=== PATIENT | female | born 1955 | race Caucasian/White ===

== ENCOUNTER 2021-06-05 09:59 | Emergency (ER) | payer MEDICARE, OTHER ==
[2021-06-05] MEDS ORDERED: SODIUM CHLORIDE 0.9% 1,000 ML IV STA (13:54)
--- NOTE | 2021-06-05 14:06 | ED ---
General Adult HPI - General Chief complaint: Abdominal Pain Stated complaint: Female Time Seen by Provider: 06/05/21 12:30 Source: patient, RN notes reviewed Mode of arrival: ambulatory Limitations: no limitations - History of Present Illness Initial comments: 66-year-old female presents to the emergency department independently with complaints of blood in her urine. Patient states she has had several episodes of urinary frequency, painful urination and hematuria this morning. Patient denies pain aside from urinating. Patient does report recent diarrheal illness that resolved last week; states she has been drinking Pedialyte, and also made s ome dietary changes as a result. Denies fever, chills, nausea, vomiting, abdominal pain, and back pain currently. No known sick contacts. - Related Data Home Medications Medication Instructions Recorded Confirmed Ascorbic Acid [Vitamin C] 500 mg PO DAILY 06/05/21 06/05/21 Aspirin EC [Ecotrin] 325 mg PO DAILY 06/05/21 06/05/21 Calcium Carbonate/Vitamin D3 1 tab PO DAILY 06/05/21 06/05/21 [Calcium 600 mg-Vit D3 10 mcg (400 Unit)] Metoprolol Tartrate [Lopressor] 25 mg PO BID 06/05/21 06/05/21 Multivitamins, Thera [Multivitamin 1 tab PO DAILY 06/05/21 06/05/21 (formulary)] Niacin 500 mg PO DAILY 06/05/21 06/05/21 Simvastatin [Zocor] 20 mg PO HS 06/05/21 06/05/21 lisinopriL [Zestril] 5 mg PO DAILY 06/05/21 06/05/21 Previous Rx's Medication Instructions Recorded Phenazopyridine [Pyridium] 200 mg PO TID #6 tablet 06/05/21 Sulfamethox-Tmp 800-160Mg [Bactrim 1 each PO Q12HR #20 tab 06/05/21 Ds] Allergies Allergy/AdvReac Type Severity Reaction Status Date / Time No Known Allergies Allergy Verified 06/05/21 13:04 Review of Systems ROS Statement: Those systems with pertinent positive or pertinent negative responses have been documented in the HPI. ROS Other: All systems not noted in ROS Statement are negative. Past Medical History Past Medical History: Coronary Artery Disease (CAD), Chest Pain / Angina, Hyperlipidemia, Hypertension Additional Past Medical History / Comment(s): Kidney History of Any Multi-Drug Resistant Organisms: None Reported Additional Past Surgical History / Comment(s): Cardiac Stent, Kidney surg Past Psychological History: No Psychological Hx Reported Smoking Status: Never smoker Past Alcohol Use History: None Reported Past Drug Use History: None Reported General Exam Limitations: no limitations General appearance: alert, in no apparent distress, other (Well-developed, well- nourished female in no acute distress.) ENT exam: Present: normal exam, normal oropharynx, mucous membranes moist Respiratory exam: Present: normal lung sounds bilaterally. Absent: respiratory distress, wheezes, rales, rhonchi, stridor Cardiovascular Exam: Present: regular rate, normal rhythm, normal heart sounds. Absent: systolic murmur, diastolic murmur, rubs, gallop, clicks GI/Abdominal exam: Present: soft, normal bowel sounds. Absent: distended, tenderness, guarding, rebound, rigid Neurological exam: Present: alert, oriented X3, CN II-XII intact Psychiatric exam: Present: normal affect, normal mood Skin exam: Present: warm, dry, intact, normal color. Absent: rash Course Vital Signs 06/05/21 10:04 Temperature 97.9 F Pulse Rate 91 Respiratory 20 Rate Blood Pressure 157/96 O2 Sat by Pulse 99 Oximetry - Reevaluation(s) Reevaluation #1: 06/05/21 15:25 Patient continuous resting comfortably; denies pain. Medical Decision Making - Medical Decision Making This is a 66-year-old female who was evaluated for hematuria and painful urination. Physical exam findings are negative this patient appears well- nourished. Patient expresses concern about blood in urine. Given 1 L of IV fluid. Blood and urine specimens were obtained. WBC 15.4, AST 136, ALT 305, alk phos 732; Urine RBC 1, WBC 6, bacteria rare. This patient's case and lab results were discussed with my attending. Patient will be encouraged to follow- up with her family doctor to discuss results further. Antibiotic therapy will be initiated for treatment of UTI. Pyridium will be given for urinary discomfort. Additional lab work was ordered included an acute hepatitis panel and a urine culture; patient will be notified if these results require any further attention as per protocol. Return parameters were discussed in detail. All of these things were discussed with patient at length; she verbalizes understanding and agrees with this plan. - Lab Data Result diagrams: 06/05/21 14:01 06/05/21 14:01 Lab Results 06/05/21 06/05/21 06/05/21 Range/Units 14: 14: 14:01 WBC 15.4 H (3.8-10.6) k/uL RBC 4.20 (3.80-5.40) m/uL Hgb 12.7 (11.4-16.0) gm/dL Hct 41.3 (34.0-46.0) % MCV 98.3 (80.0-100.0) fL MCH 30.3 (25.0-35.0) pg MCHC 30.8 L (31.0-37.0) g/dL RDW 12.3 (11.5-15.5) % Plt Count 650 H (150-450) k/uL MPV 7.4 Neutrophils % 81 % Lymphocytes % 11 % Monocytes % 4 % Eosinophils % 3 % Basophils % 0 % Neutrophils # 12.4 H (1.3-7.7) k/uL Lymphocytes # 1.7 (1.0-4.8) k/uL Monocytes # 0.6 (0-1.0) k/uL Eosinophils # 0.4 (0-0.7) k/uL Basophils # 0.1 (0-0.2) k/uL Sodium 138 (137-145) mmol/L Potassium 5.0 (3.5-5.1) mmol/L Chloride 104 (98-107) mmol/L Carbon Dioxide 22 (22-30) mmol/L Anion Gap 12 mmol/L BUN 14 (7-17) mg/dL Creatinine 0.85 (0.52-1.04) mg/dL Est GFR (CKD-EPI)AfAm 82 (>60 ml/min/1.73 sqM) Est GFR (CKD-EPI)NonAf 71 (>60 ml/min/1.73 sqM) Glucose 95 (74-99) mg/dL Calcium 9.9 (8.4-10.2) mg/dL Total Bilirubin 0.9 (0.2-1.3) mg/dL AST 136 H (14-36) U/L ALT 305 H (4-34) U/L Alkaline Phosphatase 732 H (38-126) U/L Total Protein 7.6 (6.3-8.2) g/dL Albumin 4.0 (3.5-5.0) g/dL Lipase 202 (23-300) U/L Urine Color Light Yellow Urine Appearance Clear (Clear) Urine pH 7.5 (5.0-8.0) Ur Specific [place] 1.003 (1.001-1.035) Urine Protein Negative (Negative) Urine Glucose (UA) Negative (Negative) Urine Ketones Negative (Negative) Urine Blood Large H (Negative) Urine Nitrite Negative (Negative) Urine Bilirubin Negative (Negative) Urine Urobilinogen <2.0 (<2.0) mg/dL Ur Leukocyte Esterase Large H (Negative) Urine RBC 1 (0-5) /hpf Urine WBC 6 H (0-5) /hpf Ur Squamous Epith Cells <1 (0-4) /hpf Urine Bacteria Rare H (None) /hpf Disposition Clinical Impression: Hematuria, Urinary tract infection Disposition: HOME SELF-CARE Condition: Stable Instructions (If sedation given, give patient instructions): Urinary Tract Infection in Women (ED), Hematuria (ED) Additional Instructions: Continue with ongoing hydration and dietary changes. Follow up with your primary care provider in the next 1-2 days. Call first thing tomorrow morning to discuss results from this visit including elevated liver enzymes (AST 136, ALT 305, alk phos 732). Initiate antibiotic therapy. Return to the emergency department with any new, worsening, or concerning symptoms. Prescriptions: Sulfamethox-Tmp 800-160Mg [Bactrim Ds] 1 each PO Q12HR #20 tab Phenazopyridine [Pyridium] 200 mg PO TID #6 tablet Is patient prescribed a controlled substance at d/c from ED?: No Referrals: Elgin Garber MD [Primary Care Provider] - 1-2 days Time of Disposition: 16:07
[2021-06-05 14:15] LABS: HCT 41.3 % (34.0-46.0); HGB 12.7 gm/dL (11.4-16.0); MCV 98.3 fL (80.0-100.0); WBC 15.4 k/uL (3.8-10.6)
[2021-06-05 14:16] LABS: Basophils # (A) 0.1 k/uL (0-0.2); Basophils % (A) 0 %; Eosinophils # (A) 0.4 k/uL (0-0.7); Eosinophils % (A) 3 %; Lymphocytes # (A) 1.7 k/uL (1.0-4.8); Lymphocytes % (A) 11 %; MCH 30.3 pg (25.0-35.0); MCHC 30.8 g/dL (31.0-37.0); Mean Platelet Volume 7.4; Monocytes # (A) 0.6 k/uL (0-1.0); Monocytes % (A) 4 %; Neutrophils # (A) 12.4 k/uL (1.3-7.7); Neutrophils % (A) 81 %; Platelet Count 650 k/uL (150-450); RDW 12.3 % (11.5-15.5)
[2021-06-05 14:31] LABS: Calcium 9.9 mg/dL (8.4-10.2); Total Bilirubin 0.9 mg/dL (0.2-1.3); Total Protein 7.6 g/dL (6.3-8.2)
[2021-06-05 14:41] LABS: Appearance,Urine Clear (Clear); Bacteria,Urine Rare /hpf; Bilirubin,Urine Negative (Negative); Blood,Urine Large (Negative); Color,Urine Light Yellow; Glucose,Urine (UA) Negative (Negative); Ketones,Urine Negative (Negative); Leukocyte Esterase,Urine Large (Negative); Nitrite,Urine Negative (Negative); PH, Urine 7.5 (5.0-8.0); Protein,Urine Negative (Negative); RBC,Urine 1 /hpf (0-5); Specific Gravity,Urine 1.003 (1.001-1.035); Squamous Epithelial Cell,Urine <1 /hpf (0-4); Urobilinogen,Urine <2.0 mg/dL (<2.0); WBC,Urine 6 /hpf (0-5)
[2021-06-05 17:35] VITALS: BP 138/77; PULSE 82; RESP 20; TEMP 98.4
[2021-06-07 01:49] LABS: Hepatitis A Antibody IgM Nonreactive (Nonreactive); Hepatitis B Core IgM Nonreactive (Nonreactive); Hepatitis C IgG Antibody Nonreactive (Nonreactive)
== END 2021-06-05 17:34 | disposition home or self-care (01) ==
LOC: EC 09:59
DX: N39.0 Urinary tract infection, site not specified (principal); I25.10 Atherosclerotic heart disease of native coronary artery without angina pectoris; E78.5 Hyperlipidemia, unspecified; I10 Essential (primary) hypertension; Z79.82 Long term (current) use of aspirin; Z20.822 Contact with and (suspected) exposure to COVID-19
CPT/HCPCS: 36415; 80053; 80074; 81001; 83690; 85025; 87086; 87635; 96360; 99283

== ENCOUNTER 2023-03-19 22:39 | Emergency (ER) | payer MEDICARE ==
[2023-03-19] MEDS ORDERED: SODIUM CHLORIDE 0.9% 1,000 ML IV STA (23:38)
[2023-03-19] MEDS ORDERED: METOCLOPRAMIDE 5 MG/ML 2 ML VIAL IVP STA (23:38)
[2023-03-19] MEDS ORDERED: ASPIRIN 81 MG PO STA (23:38)
[2023-03-19] MEDS ORDERED: MAG HYDROX/AL HYDROX/SIMETH 30 ML, HYOSCYAMINE ELIXIR 10 ML, LIDOCAINE 2% GLYDO JELLY 1... PO STA ×3 (23:39)
[2023-03-20 00:02] LABS: Basophils % (A) 0 %; Eosinophils # (A) 1.1 k/uL (0-0.7); Eosinophils % (A) 8 %; HGB 11.8 gm/dL (11.4-16.0); Lymphocytes # (A) 1.9 k/uL (1.0-4.8); Lymphocytes % (A) 15 %; MCH 30.6 pg (25.0-35.0); MCHC 32.8 g/dL (31.0-37.0); MCV 93.2 fL (80.0-100.0); Mean Platelet Volume 7.4; Monocytes # (A) 0.5 k/uL (0-1.0); Monocytes % (A) 4 %; Neutrophils # (A) 9.1 k/uL (1.3-7.7); Neutrophils % (A) 72 %; Platelet Count 387 k/uL (150-450); RBC 3.86 m/uL (3.80-5.40); RDW 13.3 % (11.5-15.5); WBC 12.7 k/uL (3.8-10.6)
[2023-03-20 00:07] LABS: Partial Thromboplastin Time 26.1 sec (22.0-30.0); Prothrombin Time 10.3 sec (9.0-12.0)
[2023-03-20 00:12] LABS: ALT 209 U/L (4-34); AST 88 U/L (14-36); African American GFR (CKD) 86 (>60 ml/min/1.73 sqM); Albumin 3.4 g/dL (3.5-5.0); Alkaline Phosphatase 578 U/L (38-126); Amylase 57 U/L (30-110); Anion Gap 8 mmol/L; Blood Urea Nitrogen 13 mg/dL (7-17); Calcium 8.8 mg/dL (8.4-10.2); Carbon Dioxide 25 mmol/L (22-30); Chloride 102 mmol/L (98-107); Glucose 185 mg/dL (74-99); Lipase 161 U/L (23-300); Magnesium 1.8 mg/dL (1.6-2.3); Non-African American GFR(CKD) 74 (>60 ml/min/1.73 sqM); Potassium 3.9 mmol/L (3.5-5.1); Sodium 135 mmol/L (137-145); Total Bilirubin 0.6 mg/dL (0.2-1.3); Total Protein 6.5 g/dL (6.3-8.2)
--- NOTE | 2023-03-20 00:27 | XR ---
EXAM: XR Chest, 2 Views CLINICAL HISTORY: ITS.REASON XR Reason: Chest Pain TECHNIQUE: Frontal and lateral views of the chest. COMPARISON: None. FINDINGS: Lungs: Unremarkable. No consolidation. Pleural space: Unremarkable. No pneumothorax. Heart: Unremarkable. No cardiomegaly. Mediastinum: Unremarkable. Bones/joints: Degenerative change in the spine. IMPRESSION: No radiographic evidence of acute cardiopulmonary abnormality.
[2023-03-20 00:40] VITALS: RESP 16
--- NOTE | 2023-03-20 00:55 | US ---
EXAM: US Abdomen Limited, Gallbladder CLINICAL HISTORY: ITS.REASON US Reason: abd pain TECHNIQUE: Real-time ultrasound of the right upper quadrant with image documentation. COMPARISON: No relevant prior studies available. FINDINGS: Gallbladder: Distended gallbladder with gallbladder wall thickening measuring 5 mm. No cholelithiasis. Correlate for acalculous cholecystitis. Common bile duct: Unremarkable as visualized. No stones. No dilation. Pancreas: Unremarkable as visualized. IMPRESSION: Distended gallbladder with gallbladder wall thickening measuring 5 mm. No cholelithiasis. Correlate for acalculous cholecystitis.
[2023-03-20 01:19] LABS: Appearance,Urine Clear (Clear); Bilirubin,Urine Negative (Negative); Blood,Urine Negative (Negative); Color,Urine Colorless; Glucose,Urine (UA) Negative (Negative); Ketones,Urine Negative (Negative); Leukocyte Esterase,Urine Negative (Negative); Nitrite,Urine Negative (Negative); Protein,Urine Negative (Negative); Specific Gravity,Urine 1.003 (1.001-1.035); Urobilinogen,Urine <2.0 mg/dL (<2.0)
--- NOTE | 2023-03-20 01:25 | ED ---
General Adult HPI - General Chief complaint: Chest Pain Stated complaint: Chest Pain, upperabdominal pain Time Seen by Provider: 03/19/23 23:08 Source: patient, RN notes reviewed, old records reviewed Mode of arrival: ambulatory Limitations: no limitations - History of Present Illness Initial comments: Patient is a 68-year-old female who presents emergency Department complaining of chest pain. However she does point to her epigastric region. States that after eating pizza this evening she began experiencing epigastric abdominal pain. This is associated with nausea and vomiting. She attempted to take nitro at home with no improvement. Was uncertain if it is her heart is she does have a history of CAD with stents. States she does follow up with a GI specialist. States her abdominal pain is still present as well as nausea. Denies any upper chest pain or shortness of breath. Denies any fevers. Denies any urinary complaints. His no other acute complaint at this time. Presents for further evaluation at this time.Patient states that the pain radiates through towards her back from her epigastric . - Related Data Home Medications Medication Instructions Recorded Confirmed Ascorbic Acid [Vitamin C] 500 mg PO DAILY 06/05/21 06/05/21 Aspirin EC [Ecotrin] 325 mg PO DAILY 06/05/21 06/05/21 Calcium Carbonate/Vitamin D3 1 tab PO DAILY 06/05/21 06/05/21 [Calcium 600 mg-Vit D3 10 mcg (400 Unit)] Metoprolol Tartrate [Lopressor] 25 mg PO BID 06/05/21 06/05/21 Multivitamins, Thera [Multivitamin 1 tab PO DAILY 06/05/21 06/05/21 (formulary)] Niacin 500 mg PO DAILY 06/05/21 06/05/21 Simvastatin [Zocor] 20 mg PO HS 06/05/21 06/05/21 lisinopriL [Zestril] 5 mg PO DAILY 06/05/21 06/05/21 Previous Rx's Medication Instructions Recorded Phenazopyridine [Pyridium] 200 mg PO TID #6 tablet 06/05/21 Sulfamethox-Tmp 800-160Mg [Bactrim 1 each PO Q12HR #20 tab 06/05/21 Ds] Allergies Allergy/AdvReac Type Severity Reaction Status Date / Time No Known Allergies Allergy Verified 03/19/23 22:50 Review of Systems ROS Statement: Those systems with pertinent positive or pertinent negative responses have been documented in the HPI. Review of Systems: CONST: Denies fever EYES: Denies blurry vision ENT: Denies nasal congestion C/V: Denies Chest pain RESP: Denies shortness of breath GI: Endorses abdominal pain : Denies dysuria SKIN: Denies rash. MSK: Denies joint pain. NEURO: Denies headache ROS Other: All systems not noted in ROS Statement are negative. Past Medical History Past Medical History: Coronary Artery Disease (CAD), Chest Pain / Angina, Hyperlipidemia, Hypertension Additional Past Medical History / Comment(s): Kidney History of Any Multi-Drug Resistant Organisms: None Reported Additional Past Surgical History / Comment(s): Cardiac Stent, Kidney surg Past Psychological History: No Psychological Hx Reported Smoking Status: Never smoker Past Alcohol Use History: Rare Past Drug Use History: None Reported General Exam - General Exam Comments Initial Comments: General: Appears in mild distress secondary to abdominal discomfort. HEAD: Normal with no signs of head trauma. EYES: PERRLA, EOMI, conjunctiva normal, no discharge. ENT: Hearing grossly intact, normal oropharynx. RESPIRATORY: Clear breath sounds bilaterally. No wheezes, rales, or rhonchi. C/V: Regular rate and rhythm. S1 and S2 auscultated, peripheral pulses 2+ and intact throughout ABD: Abdomen soft, nondistended. Tender to palpation in the right upper quadrant and epigastric region. No guarding. No peritoneal signs. No rebound tenderness. EXT: Normal range of motion, no obvious deformity SKIN: No rashes or lesions observed on exposed skin. NEURO: Alert and oriented 4. Limitations: no limitations Course Vital Signs 03/19/23 03/20/23 03/20/23 22:40 00:00 02:00 Temperature 98.7 F 97.7 F Pulse Rate 116 H 92 88 Respiratory 18 16 16 Rate Blood Pressure 152/80 105/64 105/66 O2 Sat by Pulse 98 98 94 L Oximetry Medical Decision Making - Medical Decision Making Was pt. sent in by a medical professional or institution (, PA, TEMPERING KILN TENDER, urgent care, hospital, or long term...) When possible be specific @ -No Did you speak to anyone other than the patient for history (EMS, parent, family, police, friend...)? What history was obtained from this source @ -No Did you review nursing and triage notes (agree or disagree)? Why? @ -I reviewed and agree with nursing and triage notes Were old charts reviewed (outside hosp., previous admission, EMS record, old EKG, old radiological studies, urgent care reports/EKG's, long term records)? Report findings @ -Old charts reviewed from May 2021. Differential Diagnosis (chest pain, altered mental status, abdominal pain women, abdominal pain men, vaginal bleeding, weakness, fever, dyspnea, syncope, headache, dizziness, GI bleed, back pain, seizure, CVA, palpatations, mental health, musculoskeletal)? @ -Differential Abdominal Pain Women: Appendicitis, Cholecystitis, diverticulosis, ischemic bowel, pancreatitis, hepatitis, UTI, gastroenteritis, AAA, incarcerated hernia, bowel obstruction, constipation, inflammatory bowel, hepatitis, peptic ulcer disease, splenic infarction, perforated viscus, vulvitis, ovarian torsion, PID, kidney stone, placenta abruption, this is not meant to be an all-inclusive list EKG interpreted by me (3pts min.). @ -As above X-rays interpreted by me (1pt min.). @ -Chest x-ray reveals no obvious acute cardio pulmonary process. CT interpreted by me (1pt min.). @ -None done U/S interpreted by me (1pt. min.). @ -Patient has gallbladder dilation with wall thickening measuring 5 mm without any evidence of cholelithiasis. correlate for acute acalculous cholecystitis per radiology. What testing was considered but not performed or refused? (CT, X-rays, U/S, labs)? Why? @ -None What meds were considered but not given or refused? Why? @ -None Did you discuss the management of the patient with other professionals (professionals i.e. , PA, TEMPERING KILN TENDER, lab, RT, psych nurse, social media editor, company pilot, teacher, investment officer, piano case maker)? Give summary @ -No Was smoking cessation discussed for >3mins.? @ -No Was critical care preformed (if so, how long)? @ -No Were there social determinants of health that impacted care today? How? (Home lessness, low income, unemployed, alcoholism, drug addiction, transportation, low edu. Level, literacy, decrease access to med. care, prison, rehab)? @ -No Was there de-escalation of care discussed even if they declined (Discuss DNR or withdrawal of care, Hospice)? DNR status @ -No What co-morbidities impacted this encounter? (DM, HTN, Smoking, COPD, CAD, Cancer, CVA, ARF, Chemo, Hep., AIDS, mental health diagnosis, sleep apnea, morbid obesity)? @ -None Was patient admitted / discharged? Hospital course, mention meds given and route, prescriptions, significant lab abnormalities, going to OR and other pertinent info. @ -Based on patient's presentation and physical exam, I'm concerned for acute intra-abdominal or. Pulmonary process for current symptoms. We will obtain cardiopulmonary labs as well as right upper quadrant: Her ultrasound. She was in agreement this plan. Vital signs are within acceptable limits. She'll be symptomatically treated with a GI cocktail, Reglan, IV fluids. She'll also be given an aspirin. She declines any other pain medications at this time. EKG showed no signs of acute ischemia. ultrasound revealed borderline Gallblad indu wall thickening. It is distended but no pericholecystic fluid. No sonographic Laureano sign.. Patient's labs are remarkable for mild leukocytosis of 12.7. Patient also has a elevated alk phos of 578, as well as mildly elevated LFTs with ALT of 209 and AST of 88. These are chronic findings, the patient has a history of elevated LFTs as well as alk phos. These are actually improved when compared with elevations from 2 years ago. Troponin is undetectable. On reevaluation, we discussed her workup. She would like to go home. She is asymptomatic at this time. The GI cocktail helped with her symptoms. Patient has chronic elevations in her alk phos and LFTs. Patient has chronic abdominal discomfort and is being watched by a GI specialist for her gallbladder. She states this is similar to previous episodes. She is pain-free at this time. She is tolerating oral intake. We did discuss that based on the borderline call but her ultrasound, it is possible she is having biliary dyskinesia. She is a very mild leukocytosis which could be reactive secondary to pain, nausea, vomiting. I'm not concerned for cardiac etiology for her current symptoms at this time with undetectable troponin and normal EKG. I did offer the patient admission for evaluation by surgery which she declined. She would like to go home. I do believe this is reasonable. Strict return precautions were discussed. I instructed the patient to follow up with their PCP in the next 1-3 days. I explained that the patient should return to the emergency department if they experience any worsening symptoms. Strict return precautions were discussed with the patient. The patient expressed understanding of these instructions. I answered all questions that the patient had. The patient was discharged home in good condition with their prescriptions and follow up information. Undiagnosed new problem with uncertain prognosis? @ -No Drug Therapy requiring intensive monitoring for toxicity (Heparin, Nitro, Insulin, Cardizem)? @ -No Were any procedures done? @ -No Diagnosis/symptom? @ -Biliary dyskinesia Acute, or Chronic, or Acute on Chronic? @ -Acute on chronic Uncomplicated (without systemic symptoms) or Complicated (systemic symptoms)? @ -Uncomplicated Side effects of treatment? @ -none Exacerbation, Progression, or Severe Exacerbation] @ -no Poses a threat to life or bodily function? @ -no - Lab Data Result diagrams: 03/19/23 23:16 03/19/23 23:16 Lab Results 03/19/23 03/19/23 03/19/23 Range/Units 23:16 23:16 23:16 WBC 12.7 H (3.8-10.6) k/uL RBC 3.86 (3.80-5.40) m/uL Hgb 11.8 (11.4-16.0) gm/dL Hct 36.0 (34.0-46.0) % MCV 93.2 (80.0-100.0) fL MCH 30.6 (25.0-35.0) pg MCHC 32.8 (31.0-37.0) g/dL RDW 13.3 (11.5-15.5) % Plt Count 387 (150-450) k/uL MPV 7.4 Neutrophils % 72 % Lymphocytes % 15 % Monocytes % 4 % Eosinophils % 8 % Basophils % 0 % Neutrophils # 9.1 H (1.3-7.7) k/uL Lymphocytes # 1.9 (1.0-4.8) k/uL Monocytes # 0.5 (0-1.0) k/uL Eosinophils # 1.1 H (0-0.7) k/uL Basophils # 0.0 (0-0.2) k/uL PT 10.3 (9.0-12.0) sec INR 1.0 (<1.2) APTT 26.1 (22.0-30.0) sec Sodium 135 L (137-145) mmol/L Potassium 3.9 (3.5-5.1) mmol/L Chloride 102 (98-107) mmol/L Carbon Dioxide 25 (22-30) mmol/L Anion Gap 8 mmol/L BUN 13 (7-17) mg/dL Creatinine 0.81 (0.52-1.04) mg/dL Est GFR (CKD-EPI)AfAm 86 (>60 ml/min/1.73 sqM) Est GFR (CKD-EPI)NonAf 74 (>60 ml/min/1.73 sqM) Glucose 185 H (74-99) mg/dL Calcium 8.8 (8.4-10.2) mg/dL Magnesium 1.8 (1.6-2.3) mg/dL Total Bilirubin 0.6 (0.2-1.3) mg/dL AST 88 H (14-36) U/L ALT 209 H (4-34) U/L Alkaline Phosphatase 578 H (38-126) U/L Troponin I (0.000-0.034) ng/mL Total Protein 6.5 (6.3-8.2) g/dL Albumin 3.4 L (3.5-5.0) g/dL Amylase 57 (30-110) U/L Lipase 161 (23-300) U/L Urine Color Urine Appearance (Clear) Urine pH (5.0-8.0) Ur Specific [place] (1.001-1.035) Urine Protein (Negative) Urine Glucose (UA) (Negative) Urine Ketones (Negative) Urine Blood (Negative) Urine Nitrite (Negative) Urine Bilirubin (Negative) Urine Urobilinogen (<2.0) mg/dL Ur Leukocyte Esterase (Negative) 03/19/23 03/20/23 Range/Units 23:16 00:43 WBC (3.8-10.6) k/uL RBC (3.80-5.40) m/uL Hgb (11.4-16.0) gm/dL Hct (34.0-46.0) % MCV (80.0-100.0) fL MCH (25.0-35.0) pg MCHC (31.0-37.0) g/dL RDW (11.5-15.5) % Plt Count (150-450) k/uL MPV Neutrophils % % Lymphocytes % % Monocytes % % Eosinophils % % Basophils % % Neutrophils # (1.3-7.7) k/uL Lymphocytes # (1.0-4.8) k/uL Monocytes # (0-1.0) k/uL Eosinophils # (0-0.7) k/uL Basophils # (0-0.2) k/uL PT (9.0-12.0) sec INR (<1.2) APTT (22.0-30.0) sec Sodium (137-145) mmol/L Potassium (3.5-5.1) mmol/L Chloride (98-107) mmol/L Carbon Dioxide (22-30) mmol/L Anion Gap mmol/L BUN (7-17) mg/dL Creatinine (0.52-1.04) mg/dL Est GFR (CKD-EPI)AfAm (>60 ml/min/1.73 sqM) Est GFR (CKD-EPI)NonAf (>60 ml/min/1.73 sqM) Glucose (74-99) mg/dL Calcium (8.4-10.2) mg/dL Magnesium (1.6-2.3) mg/dL Total Bilirubin (0.2-1.3) mg/dL AST (14-36) U/L ALT (4-34) U/L Alkaline Phosphatase (38-126) U/L Troponin I <0.012 (0.000-0.034) ng/mL Total Protein (6.3-8.2) g/dL Albumin (3.5-5.0) g/dL Amylase (30-110) U/L Lipase (23-300) U/L Urine Color Colorless Urine Appearance Clear (Clear) Urine pH 6.0 (5.0-8.0) Ur Specific [place] 1.003 (1.001-1.035) Urine Protein Negative (Negative) Urine Glucose (UA) Negative (Negative) Urine Ketones Negative (Negative) Urine Blood Negative (Negative) Urine Nitrite Negative (Negative) Urine Bilirubin Negative (Negative) Urine Urobilinogen <2.0 (<2.0) mg/dL Ur Leukocyte Esterase Negative (Negative) - EKG Data -: EKG Interpreted by Me EKG Comments: 12-lead Electrocardiogram Interpretation Note EKG was reviewed and interpreted by myself. 12-lead ECG performed at 2256 is interpreted by me as revealing sinus tachycardia at a rate of 107 beats per minute. [place] is normal. NE intervals 141 ms, QRS duration is 71 ms, QTc is 388 ms.. There were no ST or T wave abnormalities to suggest myocardial ischemia or injury. R wave progression across the precordium was satisfactory. By my interpretation this EKG is non-diagnostic for acute ischemia. Disposition Clinical Impression: Biliary dyskinesia Disposition: HOME SELF-CARE Condition: Good Instructions (If sedation given, give patient instructions): Biliary Dyskinesia (DC) Is patient prescribed a controlled substance at d/c from ED?: No Referrals: Elgin Garber MD [Primary Care Provider] - 1-2 days Time of Disposition: 01:58
[2023-03-20 02:31] VITALS: BP 105/66; PULSE 88; TEMP 97.7
== END 2023-03-20 02:32 | disposition home or self-care (01) ==
LOC: EC 22:39
DX: K82.8 Other specified diseases of gallbladder (principal); I10 Essential (primary) hypertension; E78.5 Hyperlipidemia, unspecified; I25.10 Atherosclerotic heart disease of native coronary artery without angina pectoris; Z79.82 Long term (current) use of aspirin; Z79.899 Other long term (current) drug therapy
CPT/HCPCS: 36415; 93005; 80053; 82150; 83690; 83735; 84484; 85025; 85610; 85730; 81003; 71046; 76705; 99285; 96374; 96361; J2765

== ENCOUNTER 2024-02-22 10:45 | Inpatient (IN) | payer MEDICARE ==
[2024-02-22] MEDS: SODIUM CHLORIDE 0.9% 500 ML 500 ML IV STA (11:37)
[2024-02-22] MEDS: SODIUM CHLORIDE 0.9% 1,000 ML IV STA (11:37)
[2024-02-22 11:41] LABS: Anisocytosis Slight; Basophils # (A) 0.1 k/uL (0-0.2); Basophils % (A) 1 %; Eosinophils # (A) 0.7 k/uL (0-0.7); Eosinophils % (A) 7 %; HCT 24.3 % (34.0-46.0); Hypochromasia Marked; Lymphocytes # (A) 1.1 k/uL (1.0-4.8); Lymphocytes % (A) 12 %; MCH 20.3 pg (25.0-35.0); MCV 72.4 fL (80.0-100.0); Mean Platelet Volume 6.3; Microcytosis Moderate; Monocytes # (A) 0.6 k/uL (0-1.0); Monocytes % (A) 7 %; Neutrophils # (A) 6.3 k/uL (1.3-7.7); Neutrophils % (A) 71 %; Platelet Count 678 k/uL (150-450); Poikilocytosis Slight; RBC 3.36 m/uL (3.80-5.40); RDW 16.7 % (11.5-15.5); WBC 8.9 k/uL (3.8-10.6)
[2024-02-22 11:47] LABS: HGB 6.8 gm/dL (11.4-16.0)
[2024-02-22 11:59] LABS: ALT 21 U/L (4-34); AST 24 U/L (14-36); African American GFR (CKD) >90 (>60 ml/min/1.73 sqM); Alkaline Phosphatase 195 U/L (38-126); Anion Gap 7 mmol/L; Blood Urea Nitrogen 12 mg/dL (7-17); Calcium 8.4 mg/dL (8.4-10.2); Carbon Dioxide 22 mmol/L (22-30); Chloride 109 mmol/L (98-107); Glucose 93 mg/dL (74-99); Magnesium 1.9 mg/dL (1.6-2.3); Non-African American GFR(CKD) 87 (>60 ml/min/1.73 sqM); Potassium 3.8 mmol/L (3.5-5.1); Sodium 138 mmol/L (137-145); Total Bilirubin 0.4 mg/dL (0.2-1.3); Total Protein 6.1 g/dL (6.3-8.2)
--- NOTE | 2024-02-22 12:18 | ED ---
General Adult HPI - General Chief complaint: Syncope Stated complaint: Syncope Time Seen by Provider: 02/22/24 10:55 Source: patient, EMS, RN notes reviewed, old records reviewed Mode of arrival: EMS Limitations: no limitations - History of Present Illness Initial comments: This is a 68-year-old female who presents to the emergency department stating andrés marcos has had chronic diarrhea for the last 6 months. Patient states she has 4-5 episodes a day that are quite explosive. Patient states this morning she had a large bout of diarrhea and then proceeded to go to [facility]. Patient passed out in [facility]. Patient denies any chest pain palpitations or difficulty breathing before or after her episode of passing out. Patient denies any current symptoms. Patient states lately she has been losing weight feeling weak and having this mass amount of diarrhea. Patient denies any recent fever chills or cough. Patient states she has been following up with her doctor for this but they have not come to any resolution. - Related Data Home Medications Medication Instructions Recorded Confirmed Ascorbic Acid [Vitamin C] 500 mg PO DAILY 06/05/21 06/05/21 Aspirin EC [Ecotrin] 325 mg PO DAILY 06/05/21 06/05/21 Calcium Carbonate/Vitamin D3 1 tab PO DAILY 06/05/21 06/05/21 [Calcium 600 mg-Vit D3 10 mcg (400 Unit)] Metoprolol Tartrate [Lopressor] 25 mg PO BID 06/05/21 06/05/21 Multivitamins, Thera [Multivitamin 1 tab PO DAILY 06/05/21 06/05/21 (formulary)] Niacin 500 mg PO DAILY 06/05/21 06/05/21 Simvastatin [Zocor] 20 mg PO HS 06/05/21 06/05/21 lisinopriL [Zestril] 5 mg PO DAILY 06/05/21 06/05/21 Previous Rx's Medication Instructions Recorded Phenazopyridine [Pyridium] 200 mg PO TID #6 tablet 06/05/21 Sulfamethox-Tmp 800-160Mg [Bactrim 1 each PO Q12HR #20 tab 06/05/21 Ds] Allergies Allergy/AdvReac Type Severity Reaction Status Date / Time No Known Allergies Allergy Verified 03/19/23 22:50 Review of Systems ROS Statement: Those systems with pertinent positive or pertinent negative responses have been documented in the HPI. ROS Other: All systems not noted in ROS Statement are negative. Past Medical History Past Medical History: Coronary Artery Disease (CAD), Chest Pain / Angina, Hyperlipidemia, Hypertension, Myocardial Infarction ([place]) Additional Past Medical History / Comment(s): Kidney History of Any Multi-Drug Resistant Organisms: None Reported Additional Past Surgical History / Comment(s): Cardiac Stent, Kidney surg Past Psychological History: No Psychological Hx Reported Smoking Status: Never smoker Past Alcohol Use History: Rare Past Drug Use History: None Reported General Exam - General Exam Comments Initial Comments: GENERAL: Patient is well-developed and well-nourished. Patient is nontoxic and well- hydrated and is in no acute distress. ENT: Neck is soft and supple. No significant lymphadenopathy is noted. Oropharynx is clear. Moist mucous membranes. Neck has full range of motion without eliciting any pain. EYES: The sclera were anicteric and conjunctiva are pale. Extraocular movements were intact and pupils were equal round and reactive to light. Eyelids were unremarkable. PULMONARY: Unlabored respirations. Good breath sounds bilaterally. No audible rales rhonchi or wheezing was noted. CARDIOVASCULAR: There is a regular rate and rhythm without any murmurs gallops or rubs. ABDOMEN: Soft and nontender with normal bowel sounds. No palpable organomegaly was noted. There is no palpable pulsatile mass. SKIN: Patient's skin is pale NEUROLOGIC: Patient is alert and oriented x3. Cranial nerves II through XII are grossly intact. Motor and sensory are also intact. Normal speech, volume and content. Symmetrical smile. MUSCULOSKELETAL: Normal extremities with adequate strength and full range of motion. No lower extremity swelling or edema. No calf tenderness. LYMPHATICS: No significant lymphadenopathy is noted PSYCHIATRIC: Normal psychiatric evaluation. Limitations: no limitations Course Vital Signs 02/22/24 10:46 Temperature 98.3 F Pulse Rate 107 H Respiratory 20 Rate Blood Pressure 120/75 O2 Sat by Pulse 99 Oximetry Medical Decision Making - Medical Decision Making EKG is interpreted by myself but EKG shows a sinus rhythm at 94 bpm parables 142 QRS is 73 QT interval is 349 QTc is 401. Patient's EKG shows no ST segment ovation or depression. Was pt. sent in by a medical professional or institution (, PA, WINDOW AIR CONDITIONER INSTALLER, urgent care, hospital, or half-way...) When possible be specific @ -No Did you speak to anyone other than the patient for history (EMS, parent, family, police, friend...)? What history was obtained from this source @ -No Did you review nursing and triage notes (agree or disagree)? Why? @ -I reviewed and agree with nursing and triage notes Were old charts reviewed (outside hosp., previous admission, EMS record, old EKG, old radiological studies, urgent care reports/EKG's, half-way records)? Report findings @ -No old charts were reviewed Differential Diagnosis (chest pain, altered mental status, abdominal pain women, abdominal pain men, vaginal bleeding, weakness, fever, dyspnea, syncope, headache, dizziness, GI bleed, back pain, seizure, CVA, palpatations, mental health, musculoskeletal)? @ -Differential Syncope: Valvular disease, hypertrophic cardiomyopathy, pulmonary embolism, tamponade, tachycardia, bradycardia, NE, hypovolemia, hemorrhage, dissection, anemia, intracranial hemorrhage, seizure, hypoglycemia, carbon monoxide poisoning, this is not meant to be an all-inclusive list. EKG interpreted by me (3pts min.). @ -As above X-rays interpreted by me (1pt min.). @ -None done CT interpreted by me (1pt min.). @ -None done U/S interpreted by me (1pt. min.). @ -None done What testing was considered but not performed or refused? (CT, X-rays, U/S, labs)? Why? @ -None What meds were considered but not given or refused? Why? @ -None Did you discuss the management of the patient with other professionals (professionals i.e. , PA, WINDOW AIR CONDITIONER INSTALLER, lab, RT, psych nurse, hospital social worker, welder experimental, teacher, energy control officer, case finisher)? Give summary @ -I spoke with Dr. Malloy and he agreed to admit the patient admit the patient wrote admitting orders Was smoking cessation discussed for >3mins.? @ -No Was critical care preformed (if so, how long)? @ -35 minutes Were there social determinants of health that impacted care today? How? (Homelessness, low income, unemployed, alcoholism, drug addiction, tra nsportation, low edu. Level, literacy, decrease access to med. care, [facility], rehab)? @ -No Was there de-escalation of care discussed even if they declined (Discuss DNR or withdrawal of care, Hospice)? DNR status @ -No What co-morbidities impacted this encounter? (DM, HTN, Smoking, COPD, CAD, Cancer, CVA, ARF, Chemo, Hep., AIDS, mental health diagnosis, sleep apnea, morbid obesity)? @ -None Was patient admitted / discharged? Hospital course, mention meds given and route, prescriptions, significant lab abnormalities, going to OR and other pertinent info. @ -Patient's hemoglobin came back 6.8. I ordered a unit of packed red blood cells. I spoke with [facility] hospitalist I admitted the patient wrote admitting orders I consulted GI Undiagnosed new problem with uncertain prognosis? @ -No Drug Therapy requiring intensive monitoring for toxicity (Heparin, Nitro, Insulin, Cardizem)? @ -No Were any procedures done? @ -No Diagnosis/symptom? @ -Anemia Acute, or Chronic, or Acute on Chronic? @ -Acute Uncomplicated (without systemic symptoms) or Complicated (systemic symptoms)? @ -Complicated Side effects of treatment? @ -No Exacerbation, Progression, or Severe Exacerbation? @ -No Poses a threat to life or bodily function? How? (Chest pain, [place], [place], pneumonia, PE, COPD, DKA, ARF, appy, cholecystitis, CVA, Diverticulitis, Homicidal, Suicidal, threat to staff... and all critical care pts) @ -Yes this could lead to hypoxia and endorgan dysfunction Diagnosis/symptom? @ -Chronic diarrhea Acute, or Chronic, or Acute on Chronic? @ -Chronic Uncomplicated (without systemic symptoms) or Complicated (systemic symptoms)? @ -Complicated Side effects of treatment? @ -None Exacerbation, Progression, or Severe Exacerbation] @ -No Poses a threat to life or bodily function? @ -No - Lab Data Result diagrams: 02/22/24 11:29 02/22/24 11:29 Lab Results 02/22/24 02/22/24 02/22/24 Range/Units 11:29 11:29 11:29 WBC 8.9 (3.8-10.6) k/uL RBC 3.36 L (3.80-5.40) m/uL Hgb 6.8 L* (11.4-16.0) gm/dL Hct 24.3 L (34.0-46.0) % MCV 72.4 L (80.0-100.0) fL MCH 20.3 L (25.0-35.0) pg MCHC 28.0 L (31.0-37.0) g/dL RDW 16.7 H (11.5-15.5) % Plt Count 678 H (150-450) k/uL MPV 6.3 Neutrophils % 71 % Lymphocytes % 12 % Monocytes % 7 % Eosinophils % 7 % Basophils % 1 % Neutrophils # 6.3 (1.3-7.7) k/uL Lymphocytes # 1.1 (1.0-4.8) k/uL Monocytes # 0.6 (0-1.0) k/uL Eosinophils # 0.7 (0-0.7) k/uL Basophils # 0.1 (0-0.2) k/uL Hypochromasia Marked Poikilocytosis Slight Anisocytosis Slight Microcytosis Moderate Sodium 138 (137-145) mmol/L Potassium 3.8 (3.5-5.1) mmol/L Chloride 109 H (98-107) mmol/L Carbon Dioxide 22 (22-30) mmol/L Anion Gap 7 mmol/L BUN 12 (7-17) mg/dL Creatinine 0.71 (0.52-1.04) mg/dL Est GFR (CKD-EPI)AfAm >90 (>60 ml/min/1.73 sqM) Est GFR (CKD-EPI)NonAf 87 (>60 ml/min/1.73 sqM) Glucose 93 (74-99) mg/dL Calcium 8.4 (8.4-10.2) mg/dL Magnesium 1.9 (1.6-2.3) mg/dL Total Bilirubin 0.4 (0.2-1.3) mg/dL AST 24 (14-36) U/L ALT 21 (4-34) U/L Alkaline Phosphatase 195 H (38-126) U/L Troponin I <0.012 (0.000-0.034) ng/mL Total Protein 6.1 L (6.3-8.2) g/dL Albumin 3.0 L (3.5-5.0) g/dL Blood Type Blood Type Confirm Blood Type Recheck Bld Type Recheck Status Antibody Screen Crossmatch Spec Expiration Date 02/22/24 02/22/24 Range/Units 12:48 12:53 WBC (3.8-10.6) k/uL RBC (3.80-5.40) m/uL Hgb (11.4-16.0) gm/dL Hct (34.0-46.0) % MCV (80.0-100.0) fL MCH (25.0-35.0) pg MCHC (31.0-37.0) g/dL RDW (11.5-15.5) % Plt Count (150-450) k/uL MPV Neutrophils % % Lymphocytes % % Monocytes % % Eosinophils % % Basophils % % Neutrophils # (1.3-7.7) k/uL Lymphocytes # (1.0-4.8) k/uL Monocytes # (0-1.0) k/uL Eosinophils # (0-0.7) k/uL Basophils # (0-0.2) k/uL Hypochromasia Poikilocytosis Anisocytosis Microcytosis Sodium (137-145) mmol/L Potassium (3.5-5.1) mmol/L Chloride (98-107) mmol/L Carbon Dioxide (22-30) mmol/L Anion Gap mmol/L BUN (7-17) mg/dL Creatinine (0.52-1.04) mg/dL Est GFR (CKD-EPI)AfAm (>60 ml/min/1.73 sqM) Est GFR (CKD-EPI)NonAf (>60 ml/min/1.73 sqM) Glucose (74-99) mg/dL Calcium (8.4-10.2) mg/dL Magnesium (1.6-2.3) mg/dL Total Bilirubin (0.2-1.3) mg/dL AST (14-36) U/L ALT (4-34) U/L Alkaline Phosphatase (38-126) U/L Troponin I (0.000-0.034) ng/mL Total Protein (6.3-8.2) g/dL Albumin (3.5-5.0) g/dL Blood Type O Positive Blood Type Confirm O Positive Blood Type Recheck No Previous Record Bld Type Recheck Status CABO Indicated Antibody Screen NEGATIVE Crossmatch See Detail Spec Expiration Date 02/25/2024 - 2352 Critical Care Time Critical Care Time: Yes Total Critical Care Time: 35 Disposition Clinical Impression: Chronic diarrhea, Anemia Disposition: ADMITTED IP TO THIS HOSP Referrals: Elgin Garber MD [Primary Care Provider] - 1-2 days Time of Disposition: 14:10
--- NOTE | 2024-02-22 12:52 | XR ---
EXAMINATION TYPE: XR chest 2V DATE OF EXAM: 02/22/2024 12:29 PM CLINICAL INDICATION:Female, 68 years old with history of Chest Pain; [facility] COMPARISON: Chest radiographs from 03/19/2023 TECHNIQUE: XR chest 2V Frontal and lateral views of the chest. FINDINGS: Lungs/Pleura: There is no evidence of pleural effusion, focal consolidation, or pneumothorax. Pulmonary vascularity: Unremarkable. Heart/mediastinum: Cardiomediastinal silhouette is unremarkable. Musculoskeletal: No acute osseous pathology. Other findings: None IMPRESSION: No acute cardiopulmonary disease/process.
[2024-02-22] MEDS: PANTOPRAZOLE 40 MG/10 ML VIAL IVP SCH (14:36)
[2024-02-22] MEDS: SODIUM CHLORIDE 0.9% 1,000 ML IV ONE (16:59)
[2024-02-22] MEDS: CHOLESTYRAMINE (WITH SUGAR) 4 GM PACKET PO SCH (17:24)
[2024-02-22 19:49] LABS: Anisocytosis Slight; Basophils # (A) 0.1 k/uL (0-0.2); Basophils % (A) 1 %; Eosinophils % (A) 13 %; HCT 25.7 % (34.0-46.0); HGB 7.3 gm/dL (11.4-16.0); Hypochromasia Marked; Lymphocytes # (A) 1.9 k/uL (1.0-4.8); Lymphocytes % (A) 24 %; MCH 21.4 pg (25.0-35.0); MCHC 28.4 g/dL (31.0-37.0); MCV 75.5 fL (80.0-100.0); Mean Platelet Volume 6.3; Microcytosis Slight; Monocytes # (A) 0.6 k/uL (0-1.0); Monocytes % (A) 7 %; Neutrophils # (A) 4.1 k/uL (1.3-7.7); Neutrophils % (A) 52 %; Platelet Count 615 k/uL (150-450); Poikilocytosis Slight; RDW 17.6 % (11.5-15.5); WBC 7.8 k/uL (3.8-10.6)
[2024-02-22 23:34] LABS: % Iron Saturation 3.09 (12.00-45.00); Ferritin 5.3 ng/mL (10.0-291.0)
--- NOTE | 2024-02-23 09:29 | P.HPIM ---
History of Present Illness H&P Date: 02/22/24 History of present illness; patient is a 68-year-old lady with past medical history significant for hypertension, cholecystectomy who presented to the ER for syncopal episode. Patient stated that she has been dealing with diarrhea ever since her cholecystectomy. Patient describes these episodes of diarrhea as explosive in nature, denies any blood in the stools. Patient did talk to her doctor and they put her on cholestyramine only once a day. Patient stated that this morning she had a large bout of diarrhea. There was no complaint of blood in it. There was no complaint of nausea or vomiting. Patient then went to [facility] and there she had a syncopal episode and she passed out Initial lab work done in the ER showed WBC 8.9, hemoglobin 6.8, platelet count 678, sodium 130, potassium 3.8, BUN 12, creatinine 0.71, glucose 93, magnesium 1.9, troponin 0.012 EKG done in the ER showed heart rate of , no ST segment elevation or depression seen, no T-wave inversions seen. Chest x-ray done in the ER showed no acute cardiopulmonary process Patient admitted to internal medicine service REVIEW OF SYSTEMS: CONSTITUTIONAL: No fever, no malaise, no fatigue. HEENT: No recent visual problems or hearing problems. Denied any sore throat. CARDIOVASCULAR: No chest pain, orthopnea, PND, no palpitations, no syncope. PULMONARY: No shortness of breath, no cough, no hemoptysis. GASTROINTESTINAL: As mentioned HPI NEUROLOGICAL: No headaches, no weakness, no numbness. HEMATOLOGICAL: Denies any bleeding or petechiae. GENITOURINARY: Denies any burning micturition, frequency, or urgency. MUSCULOSKELETAL/RHEUMATOLOGICAL: Denies any joint pain, swelling, or any muscle pain. ENDOCRINE: Denies any polyuria or polydipsia. The rest of the 14-point review of systems is negative. PHYSICAL EXAMINATION: GENERAL: The patient is alert and oriented x3, not in any acute distress. Well developed, well nourished. HEENT: Pupils are round and equally reacting to light. EOMI. No scleral icterus. No conjunctival pallor. Normocephalic, atraumatic. No pharyngeal erythema. No thyromegaly. CARDIOVASCULAR: S1 and S2 present. No murmurs, rubs, or gallops. PULMONARY: Chest is clear to auscultation, no wheezing or crackles. ABDOMEN: Soft, nontender, nondistended, normoactive bowel sounds. No palpable organomegaly. MUSCULOSKELETAL: No joint swelling or deformity. EXTREMITIES: No cyanosis, clubbing, or pedal edema. NEUROLOGICAL: Gross neurological examination did not reveal any focal deficits. SKIN: No rashes. Assessment and plan Syncope Anemia Diarrhea Hypertension Monitor vital signs Monitor CBC Monitor CMP Continue telemetry monitoring Ordered FOBT Order vitamin B12 Ordered iron levels Avoid antiplatelet Start IV Protonix Resume home meds Consult GI Labs and medication were reviewed.. Continue same treatment. Continue with symptomatic treatment. Resume home medication. Monitor labs and vitals. DVT and GI prophylaxis. Further recommendations as per clinical course of the patient Dictation was produced using [employer] dictation software. please excuse any grammatical, word or spelling errors. Past Medical History Past Medical History: Coronary Artery Disease (CAD), Chest Pain / Angina, Hyperlipidemia, Hypertension, Myocardial Infarction ([place]) Additional Past Medical History / Comment(s): Kidney History of Any Multi-Drug Resistant Organisms: None Reported Additional Past Surgical History / Comment(s): Cardiac Stent, Kidney surg Past Psychological History: No Psychological Hx Reported Smoking Status: Never smoker Past Alcohol Use History: Rare Past Drug Use History: None Reported Medications and Allergies Home Medications Medication Instructions Recorded Confirmed Type Ascorbic Acid [Vitamin C] 500 mg PO DAILY 06/05/21 02/22/24 History Calcium Carbonate/Vitamin D3 1 tab PO BID 06/05/21 02/22/24 History [Calcium 600 mg-Vit D3 10 mcg (400 Unit)] Metoprolol Tartrate [Lopressor] 25 mg PO BID 06/05/21 02/22/24 History Multivitamins, Thera [Multivitamin 1 tab PO DAILY 06/05/21 02/22/24 History (formulary)] Niacin 500 mg PO DAILY 06/05/21 02/22/24 History Aspirin EC [Ecotrin Low Dose] 81 mg PO DAILY 02/22/24 02/22/24 History Atorvastatin [Lipitor] 10 mg PO DAILY 02/22/24 02/22/24 History Cholestyramine/Aspartame [Questran 1 scoop PO DAILY 02/22/24 02/22/24 History Light Powder] Nitroglycerin Sl Tabs [Nitrostat] 0.4 mg SUBLINGUAL Q5M PRN 02/22/24 02/22/24 History amLODIPine [Norvasc] 2.5 mg PO DAILY 02/22/24 02/22/24 History Allergies Allergy/AdvReac Type Severity Reaction Status Date / Time No Known Allergies Allergy Verified 02/22/24 15:14 Physical Exam Vitals: Vital Signs Temp Pulse Resp BP Pulse Ox 02/22/24 10:46 98.3 F 107 H 20 120/75 99 Intake and Output 02/21/24 02/22/24 02/22/24 22:59 06:59 14:59 Other: Weight 61.689 kg Results CBC & Chem 7: 02/22/24 19:37 02/22/24 11:29 Labs: Abnormal Lab Results - Last 24 Hours (Table) 02/22/24 02/22/24 Range/Units 11:29 11:29 RBC 3.36 L (3.80-5.40) m/uL Hgb 6.8 L* (11.4-16.0) gm/dL Hct 24.3 L (34.0-46.0) % MCV 72.4 L (80.0-100.0) fL MCH 20.3 L (25.0-35.0) pg MCHC 28.0 L (31.0-37.0) g/dL RDW 16.7 H (11.5-15.5) % Plt Count 678 H (150-450) k/uL Chloride 109 H (98-107) mmol/L Alkaline Phosphatase 195 H (38-126) U/L Total Protein 6.1 L (6.3-8.2) g/dL Albumin 3.0 L (3.5-5.0) g/dL
[2024-02-23 10:21] LABS: Basophils % (A) 1.1 %; Eosinophils # (A) 0.96 X 10*3/uL (0.04-0.35); Eosinophils % (A) 10.9 %; HCT 26.1 % (37.2-46.3); HGB 7.3 g/dL (12.0-15.0); Lymphocytes # (A) 1.42 X 10*3/uL (0.90-5.00); Lymphocytes % (A) 16.1 %; MCV 75.2 FL (80.0-97.0); Mean Platelet Volume 8.1 FL (9.5-12.2); Monocytes # (A) 1.07 X 10*3/uL (0.20-1.00); Monocytes % (A) 12.1 %; NRBC Per 100 WBC 0 X 10*3/uL (0.00-0.01); Neutrophils # (A) 5.24 X 10*3/uL (1.80-7.70); Neutrophils % (A) 59.3 %; Platelet Count 537 X 10*3/uL (140-440); RBC 3.47 X 10*6/uL (4.10-5.20); RDW 17.5 % (11.5-14.5); WBC 8.83 X 10*3/uL (4.50-10.00)
[2024-02-23] MEDS: SODIUM FERRIC GLUCONAT-SUCROSE 125 MG in SODIUM CHLORIDE 0.9% 100 ML IVPB SCH (11:04)
[2024-02-23] MEDS: ATORVASTATIN 10 MG TAB PO SCH (11:04)
--- NOTE | 2024-02-23 12:51 | P.GSCN ---
History of Present Illness Consult date: 02/23/24 History of present illness: CHIEF COMPLAINT: Syncope HISTORY OF PRESENT ILLNESS: This is a 76-year-old female who presented to the hospital after having a syncopal episode at [facility]. Patient has been having diarrhea since May after she had her gallbladder surgery completed. Patient reports the diarrhea is being explosive. She had been following up with her GI doctor. She reports she changed her diet but did seem to initially help with the diarrhea. But then the diarrhea did worsen. She reports having blood in her stools x 2 this morning. Nurses reported the blood to be dark. Other than that she had not noticed any blood in the stools at home. She had a hemoglobin of 6.8 did receive a unit of blood and hemoglobin went up to 7.3. Last colonoscopy 2 years ago which had revealed colon polyps. Patient denies being on any blood thinners. She did report having left-sided back pain just prior to the episode of diarrhea. Patient does have a history of hemorrhoids. Surgical service has been consulted in regards to anemia and GI bleed. PAST MEDICAL HISTORY: Coronary Artery Disease (CAD), Chest Pain / Angina, Hyperlipidemia, Hypertension, Myocardial Infarction ([place]) PAST SURGICAL HISTORY: Cardiac stent MEDICATIONS: See below ALLERGIES: See below SOCIAL HISTORY: No illicit drug use. REVIEW OF SYSTEMS: CONSTITUTIONAL: Denies fever or chills. HEENT: Denies blurred vision, vision changes, or eye pain. Denies hemoptysis CARDIOVASCULAR: Denies chest pain or pressure. RESPIRATORY: No shortness of breath. GASTROINTESTINAL: See HPI for pertinent findings HEMATOLOGIC: Denies bleeding disorders. GENITOURINARY: Denies any blood in urine or increased urinary frequency. SKIN: Denies pruitis. Denies rash. PHYSICAL EXAM: VITAL SIGNS: Reviewed GENERAL: Well-developed in no acute distress. HEENT: No sclera icterus. Extraocular movements grossly intact. Moist buccal mucosa. Head is atraumatic, normocephalic. No nasal drainage. ABDOMEN: Soft. Nondistended. Nontender NEUROLOGIC: Alert and oriented. Cranial nerves II through XII grossly intact. LABORATORY DATA: WBC 8.83 HGB 6.8 to 7.3 plt 537 HGB in March 2023 was 11.8 Na 138 k 3.8 creatinine 0.71 iron 11 Stool for occult blood positive IMAGING: ASSESSMENT: 1. Acute blood loss anemia due to GI bleed 2. Acute GI bleed with bloody stools 3. Diarrhea 4. Syncope 5. Iron deficiency anemia PLAN: -Patient scheduled for EGD and colonoscopy tomorrow with Dr. Torres -Start clear liquid diet -Start GoLytely bowel prep -N.p.o. after midnight -Continue IV fluids -Hold Questran -Continue to monitor hemoglobin -Continue to monitor any signs or symptoms of bleeding -Continue IV Protonix Thank you for this consultation Physician Pin Drafting Machine Tender note has been reviewed by physician. Signing provider agrees with the documented findings, assessment, and plan of care. Past Medical History Past Medical History: Coronary Artery Disease (CAD), Chest Pain / Angina, Hyperlipidemia, Hypertension, Myocardial Infarction ([place]) Additional Past Medical History / Comment(s): Kidney Last Myocardial Infarction Date:: 2008 History of Any Multi-Drug Resistant Organisms: None Reported Past Surgical History: Cholecystectomy Additional Past Surgical History / Comment(s): Cardiac Stent, Kidney surg Past Psychological History: No Psychological Hx Reported Smoking Status: Never smoker Past Alcohol Use History: Rare Past Drug Use History: None Reported Medications and Allergies Home Medications Medication Instructions Recorded Confirmed Type Ascorbic Acid [Vitamin C] 500 mg PO DAILY 06/05/21 02/22/24 History Calcium Carbonate/Vitamin D3 1 tab PO BID 06/05/21 02/22/24 History [Calcium 600 mg-Vit D3 10 mcg (400 Unit)] Metoprolol Tartrate [Lopressor] 25 mg PO BID 06/05/21 02/22/24 History Multivitamins, Thera [Multivitamin 1 tab PO DAILY 06/05/21 02/22/24 History (formulary)] Niacin 500 mg PO DAILY 06/05/21 02/22/24 History Aspirin EC [Ecotrin Low Dose] 81 mg PO DAILY 02/22/24 02/22/24 History Atorvastatin [Lipitor] 10 mg PO DAILY 02/22/24 02/22/24 History Cholestyramine/Aspartame [Questran 1 scoop PO DAILY 02/22/24 02/22/24 History Light Powder] Nitroglycerin Sl Tabs [Nitrostat] 0.4 mg SUBLINGUAL Q5M PRN 02/22/24 02/22/24 History amLODIPine [Norvasc] 2.5 mg PO DAILY 02/22/24 02/22/24 History Allergies Allergy/AdvReac Type Severity Reaction Status Date / Time No Known Allergies Allergy Verified 02/22/24 15:14 Surgical - Exam Vital Signs Temp Pulse Resp BP Pulse Ox 98.3 F 107 H 20 120/75 99 02/22/24 10:46 02/22/24 10:46 02/22/24 10:46 02/22/24 10:46 02/22/24 10:46 Results - Labs 02/23/24 06:13 02/22/24 11:29 Abnormal Lab Results - Last 24 Hours (Table) 02/22/24 02/22/24 02/22/24 Range/Units 11:29 12:53 19:37 RBC 3.40 L (3.80-5.40) m/uL Hgb 7.3 L (11.4-16.0) gm/dL Hct 25.7 L (34.0-46.0) % MCV 75.5 L (80.0-100.0) fL MCH 21.4 L (25.0-35.0) pg MCHC 28.4 L (31.0-37.0) g/dL RDW 17.6 H (11.5-15.5) % Plt Count 615 H (150-450) k/uL MPV (9.5-12.2) FL Monocytes # (0.20-1.00) X 10*3/uL Eosinophils # 1.0 H (0-0.7) k/uL Iron 11 L (50-170) UG/DL % Saturation 3.09 L (12.00-45.00) Ferritin 5.3 L (10.0-291.0) ng/mL Stool Occult Blood (Negative) Crossmatch See Detail 02/23/24 02/23/24 Range/Units 03:43 06:13 RBC 3.47 L (3.80-5.40) m/uL Hgb 7.3 L (11.4-16.0) gm/dL Hct 26.1 L (34.0-46.0) % MCV 75.2 L (80.0-100.0) fL MCH 21.0 L (25.0-35.0) pg MCHC 28.0 L (31.0-37.0) g/dL RDW 17.5 H (11.5-15.5) % Plt Count 537 H (150-450) k/uL MPV 8.1 L (9.5-12.2) FL Monocytes # 1.07 H (0.20-1.00) X 10*3/uL Eosinophils # 0.96 H (0-0.7) k/uL Iron (50-170) UG/DL % Saturation (12.00-45.00) Ferritin (10.0-291.0) ng/mL Stool Occult Blood Positive H (Negative) Crossmatch
--- NOTE | 2024-02-23 13:24 | P.PN ---
Subjective Progress Note Date: 02/23/24 patient is a 68-year-old lady with past medical history significant for hypertension, cholecystectomy who presented to the ER for syncopal episode. Patient stated that she has been dealing with diarrhea ever since her cholecystectomy. Patient describes these episodes of diarrhea as explosive in nature, denies any blood in the stools. Patient did talk to her doctor and they put her on cholestyramine only once a day. Patient stated that this morning she had a large bout of diarrhea. There was no complaint of blood in it. There was no complaint of nausea or vomiting. Patient then went to [facility] [place] and there she had a syncopal episode and she passed out Initial lab work done in the ER showed WBC 8.9, hemoglobin 6.8, platelet count 678, sodium 130, potassium 3.8, BUN 12, creatinine 0.71, glucose 93, magnesium 1.9, troponin 0.012 EKG done in the ER showed heart rate of , no ST segment elevation or depression seen, no T-wave inversions seen. Chest x-ray done in the ER showed no acute cardiopulmonary process Patient admitted to internal medicine service 02/22. Patient seen and examined. FOBT is positive. There is no GI coverage today, general surgery has been consulted. Patient had had a bowel movement which was dark in color. REVIEW OF SYSTEMS: CONSTITUTIONAL: No fever, no malaise,. CARDIOVASCULAR: No chest pain, no palpitations, no syncope. PULMONARY: No shortness of breath, no cough, GASTROINTESTINAL: No diarrhea, no nausea, no vomiting. NEUROLOGICAL: No headaches, no weakness, PHYSICAL EXAMINATION: GENERAL: The patient is alert and oriented x3, not in any acute distress. Well developed, well nourished. HEENT: Pupils are round and equally reacting to light. EOMI. No scleral icterus. No conjunctival pallor. Normocephalic, atraumatic. No pharyngeal erythema. No thyromegaly. CARDIOVASCULAR: S1 and S2 present. No murmurs, rubs, or gallops. PULMONARY: Chest is clear to auscultation, no wheezing or crackles. ABDOMEN: Soft, nontender, nondistended, normoactive bowel sounds. No palpable organomegaly. MUSCULOSKELETAL: No joint swelling or deformity. EXTREMITIES: No cyanosis, clubbing, or pedal edema. NEUROLOGICAL: Gross neurological examination did not reveal any focal deficits. SKIN: No rashes. Assessment and plan Syncope Anemia due to acute blood loss Iron deficiency anemia Diarrhea Hypertension Monitor vital signs Monitor CBC Monitor CMP Continue telemetry monitoring Results of iron studies noted, iron level is 11, saturation is 3.09, Avoid antiplatelet Continue IV Protonix 40 mg twice a day Start IV iron No GI coverage at this time, will consult general surgery Labs and medication were reviewed.. Continue same treatment. Continue with symptomatic treatment. Resume home medication. Monitor labs and vitals. DVT and GI prophylaxis. Further recommendations as per clinical course of the patient Dictation was produced using [employer] dictation software. please excuse any grammatical, word or spelling errors. Objective - Vital Signs Vital signs: Vital Signs Temp 98.5 F 02/23/24 07:20 Pulse 96 02/23/24 07:20 Resp 16 02/23/24 07:20 BP 128/70 02/23/24 07:20 Pulse Ox 96 02/23/24 07:20 FiO2 Intake & Output 02/22/24 02/23/24 02/23/24 18:59 06:59 18:59 Intake Total 310 Balance 310 Weight 61.689 kg Intake: Blood Product 310 Rc As-1 Unit 310 [id number] Other: # Voids 2 # Bowel Movements 0 0 2 - Labs CBC & Chem 7: 02/23/24 06:13 02/22/24 11:29 Labs: Abnormal Lab Results - Last 24 Hours (Table) 02/22/24 02/22/24 02/22/24 Range/Units 11:29 11:29 11:29 RBC 3.36 L (3.80-5.40) m/uL Hgb 6.8 L* (11.4-16.0) gm/dL Hct 24.3 L (34.0-46.0) % MCV 72.4 L (80.0-100.0) fL MCH 20.3 L (25.0-35.0) pg MCHC 28.0 L (31.0-37.0) g/dL RDW 16.7 H (11.5-15.5) % Plt Count 678 H (150-450) k/uL Eosinophils # (0-0.7) k/uL Chloride 109 H (98-107) mmol/L Iron 11 L (50-170) UG/DL % Saturation 3.09 L (12.00-45.00) Ferritin 5.3 L (10.0-291.0) ng/mL Alkaline Phosphatase 195 H (38-126) U/L Total Protein 6.1 L (6.3-8.2) g/dL Albumin 3.0 L (3.5-5.0) g/dL Stool Occult Blood (Negative) Crossmatch 02/22/24 02/22/24 02/23/24 Range/Units 12:53 19:37 03:43 RBC 3.40 L (3.80-5.40) m/uL Hgb 7.3 L (11.4-16.0) gm/dL Hct 25.7 L (34.0-46.0) % MCV 75.5 L (80.0-100.0) fL MCH 21.4 L (25.0-35.0) pg MCHC 28.4 L (31.0-37.0) g/dL RDW 17.6 H (11.5-15.5) % Plt Count 615 H (150-450) k/uL Eosinophils # 1.0 H (0-0.7) k/uL Chloride (98-107) mmol/L Iron (50-170) UG/DL % Saturation (12.00-45.00) Ferritin (10.0-291.0) ng/mL Alkaline Phosphatase (38-126) U/L Total Protein (6.3-8.2) g/dL Albumin (3.5-5.0) g/dL Stool Occult Blood Positive H (Negative) Crossmatch See Detail
[2024-02-23] MEDS: PEG 3350 (236 GM/BTL) + LYTES 4,000 ML BOTTLE PO ONE (14:25)
[2024-02-23 16:21] LABS: Anisocytosis Slight; HCT 33.3 % (34.0-46.0); Hypochromasia Marked; MCH 21.8 pg (25.0-35.0); MCHC 28.5 g/dL (31.0-37.0); MCV 76.5 fL (80.0-100.0); Mean Platelet Volume 6.3; Microcytosis Slight; Platelet Count 729 k/uL (150-450); Poikilocytosis Slight; RBC 4.36 m/uL (3.80-5.40); RDW 17.4 % (11.5-15.5); WBC 7.3 k/uL (3.8-10.6)
[2024-02-23 16:47] LABS: HGB 9.5 gm/dL (11.4-16.0)
[2024-02-23] MEDS: ONDANSETRON 4 MG/2 ML VIAL IVP PRN (17:41)
[2024-02-23] MEDS: SODIUM CHLORIDE 0.9% 1,000 ML IV SCH (17:59)
[2024-02-23 20:11] VITALS: RESP 16
[2024-02-23] MEDS: PANTOPRAZOLE 40 MG/10 ML VIAL IVP SCH (20:14)
[2024-02-23] MEDS: METOPROLOL TARTRATE 25 MG TAB PO SCH (20:15)
[2024-02-23] MEDS: CALCIUM CARB-VIT D 500 MG-5 MCG TAB PO SCH (20:15)
[2024-02-24 00:44] LABS: Anisocytosis Slight; HGB 8.1 gm/dL (11.4-16.0); Hypochromasia Marked; MCH 21.4 pg (25.0-35.0); MCHC 28.8 g/dL (31.0-37.0); MCV 74.4 fL (80.0-100.0); Mean Platelet Volume 6.2; Microcytosis Moderate; Platelet Count 652 k/uL (150-450); Poikilocytosis Moderate; RBC 3.77 m/uL (3.80-5.40); RDW 17.7 % (11.5-15.5); WBC 8.1 k/uL (3.8-10.6)
[2024-02-24 07:32] LABS: Anisocytosis Slight; Basophils # (A) 0.1 k/uL (0-0.2); Basophils % (A) 1 %; Eosinophils # (A) 1.7 k/uL (0-0.7); Eosinophils % (A) 20 %; HCT 27.8 % (34.0-46.0); HGB 8.1 gm/dL (11.4-16.0); Hypochromasia Marked; Lymphocytes # (A) 1.7 k/uL (1.0-4.8); Lymphocytes % (A) 19 %; MCH 22.3 pg (25.0-35.0); MCV 76.7 fL (80.0-100.0); Mean Platelet Volume 6.6; Microcytosis Slight; Monocytes # (A) 0.6 k/uL (0-1.0); Monocytes % (A) 7 %; Neutrophils # (A) 4.4 k/uL (1.3-7.7); Neutrophils % (A) 51 %; Platelet Count 603 k/uL (150-450); Poikilocytosis Moderate; RBC 3.63 m/uL (3.80-5.40); RDW 17.3 % (11.5-15.5); WBC 8.5 k/uL (3.8-10.6)
[2024-02-24 07:33] LABS: African American GFR (CKD) 86 (>60 ml/min/1.73 sqM); Anion Gap 6 mmol/L; Blood Urea Nitrogen 5 mg/dL (7-17); Calcium 8.5 mg/dL (8.4-10.2); Carbon Dioxide 24 mmol/L (22-30); Chloride 110 mmol/L (98-107); Glucose 74 mg/dL (74-99); Non-African American GFR(CKD) 74 (>60 ml/min/1.73 sqM); Potassium 3.9 mmol/L (3.5-5.1); Sodium 140 mmol/L (137-145)
[2024-02-24] MEDS ORDERED: PROPOFOL 10 MG/ML 20 ML VIAL IV ONE (11:19)
[2024-02-24] MEDS: IV FLUID CONTINUATION 1,000 ML IV ONE (11:24)
--- NOTE | 2024-02-24 11:55 | P.OP ---
Date of Procedure: 02/24/24 Preoperative Diagnosis: diarrhea Anemia Postoperative Diagnosis: antral gastritis Colitis Procedure(s) Performed: EGD Colonoscopy Anesthesia: MAC Surgeon: Wellington Torres Pathology: other (antrum,colon) Condition: stable Disposition: PACU Description of Procedure: the patient's placed on the operative table in the lateral position. She received IV sedation. The gastroscope placed oropharynx passed in the esophagus and stomach. Scope some placed through the pylorus. First and second portion of the duodenum appeared normal. Scope was then brought back the antrum this. Mildly inflamed. A biopsies performed. Scope was then retroflexed and the remainder the stomach appeared normal. The GE junction was at 40 cm. The distal esophagus appeared normal. The proximal esophagus. Normal. Scope was withdrawn for patient. There is no evidence of any upper GI bleed. Next digital rectal exam was performed. There is a large amount liquid stool in the colon. The colonoscope was advanced through the colon. The colon appeared to be inflamed. The colonoscope could not be advanced into the proximal right colon secondary to inflammation of the bowel. The colon was tortuous. The scope was withdrawn. There was inflamed or changes in the visualized right colon. The transverse colon appeared to be inflamed. A biopsies performed. The descending and sigmoid colon appeared inflamed a biopsy performed of both of these areas. Scope back the rectum and there was decrease insufflation the rectum and a biopsies performed as well. Scope withdrawn for patient. There was no evidence of any lower GI bleed. Patient did have colitis that extended throughout almost the entire colon. Biopsies performed. Pathology is pending.
--- NOTE | 2024-02-24 12:52 | P.PN ---
Subjective Progress Note Date: 02/24/24 CHIEF COMPLAINT: Diarrhea and anemia HISTORY OF PRESENT ILLNESS: Patient is status post EGD and colonoscopy with results reporting antral gastritis and colitis. There is no evidence of GI bleed. Patient had evidence of colitis that extended throughout the entire colon. Biopsies taken. Patient denies abdominal pain. Hemoglobin today 8.1 PHYSICAL EXAM: VITAL SIGNS: Reviewed. GENERAL: Well-developed in no acute distress. HEENT: No sclera icterus. Extraocular movements grossly intact. Moist buccal mucosa. Head is atraumatic, normocephalic. ABDOMEN: Soft. Nondistended. Nontender. NEUROLOGIC: Alert and oriented. Cranial nerves II through XII grossly intact. ASSESSMENT: 1. Acute GI bleed with acute blood loss anemia. Status post EGD and colonoscopy revealing antral gastritis and colitis 2. Diarrhea likely secondary to colitis PLAN: -Flagyl added for colitis -Okay to resume regular diet -Patient can be discharged from surgical standpoint when medically cleared -Follow-up on biopsy results Physician Field Services Analyst note has been reviewed by physician. Signing provider agrees with the documented findings, assessment, and plan of care. Objective - Vital Signs Vital signs: Vital Signs Temp 98.1 F 02/24/24 07:50 Pulse 86 02/24/24 07:50 Resp 16 02/24/24 07:50 BP 115/67 02/24/24 07:50 Pulse Ox 98 02/24/24 07:50 FiO2 Intake & Output 02/23/24 02/24/24 02/24/24 18:59 06:59 18:59 Output Total 4 Balance -4 Output: Urine/Stool Mix 4 Other: Voiding Method Toilet # Voids 4 2 # Bowel Movements 2 5 - Labs CBC & Chem 7: 02/24/24 06:26 02/24/24 06:26 Labs: Abnormal Lab Results - Last 24 Hours (Table) 02/23/24 02/24/24 02/24/24 Range/Units 15:57 00:00 06:26 RBC 3.77 L 3.63 L (3.80-5.40) m/uL Hgb 9.5 L D 8.1 L 8.1 L (11.4-16.0) gm/dL Hct 33.3 L 28.0 L 27.8 L (34.0-46.0) % MCV 76.5 L 74.4 L 76.7 L (80.0-100.0) fL MCH 21.8 L 21.4 L 22.3 L (25.0-35.0) pg MCHC 28.5 L 28.8 L 29.0 L (31.0-37.0) g/dL RDW 17.4 H 17.7 H 17.3 H (11.5-15.5) % Plt Count 729 H 652 H 603 H (150-450) k/uL Eosinophils # 1.7 H (0-0.7) k/uL Chloride (98-107) mmol/L BUN (7-17) mg/dL 02/24/24 Range/Units 06:26 RBC (3.80-5.40) m/uL Hgb (11.4-16.0) gm/dL Hct (34.0-46.0) % MCV (80.0-100.0) fL MCH (25.0-35.0) pg MCHC (31.0-37.0) g/dL RDW (11.5-15.5) % Plt Count (150-450) k/uL Eosinophils # (0-0.7) k/uL Chloride 110 H (98-107) mmol/L BUN 5 L (7-17) mg/dL
[2024-02-24] MEDS: metroNIDAZOLE 500 MG TAB PO SCH (13:13)
[2024-02-24 14:50] VITALS: BP 101/61; PULSE 91; TEMP 97.5
--- NOTE | 2024-02-24 14:57 | P.DS ---
Providers Date of admission: 02/22/24 14:11 Expected date of discharge: 02/24/24 Attending physician: Eros Malloy MD Consults: 02/23/24 09:01 Consult Physician Urgent Consulting Provider: Wellington Torres Consult Reason/Comments: anemia Do you want consulting provider notified?: Yes Primary care physician: Allen Parish Hospital Course: Discharge diagnoses; Syncope Colitis Antral gastritis Anemia due to acute blood loss Iron deficiency anemia Diarrhea Hypertension Hospital course; patient is a 68-year-old lady with past medical history significant for hypertension, cholecystectomy who presented to the ER for syncopal episode. Patient stated that she has been dealing with diarrhea ever since her cholecystectomy. Patient describes these episodes of diarrhea as explosive in nature, denies any blood in the stools. Patient did talk to her doctor and they put her on cholestyramine only once a day. Patient stated that this morning she had a large bout of diarrhea. There was no complaint of blood in it. There was no complaint of nausea or vomiting. Patient then went to [place] and there she had a syncopal episode and she passed out Initial lab work done in the ER showed WBC 8.9, hemoglobin 6.8, platelet count 678, sodium 130, potassium 3.8, BUN 12, creatinine 0.71, glucose 93, magnesium 1.9, troponin 0.012 EKG done in the ER showed heart rate of , no ST segment elevation or depression seen, no T-wave inversions seen. Chest x-ray done in the ER showed no acute cardiopulmonary process Patient admitted to internal medicine service 02/22. Patient seen and examined. FOBT is positive. There is no GI coverage today, general surgery has been consulted. Patient had had a bowel movement which was dark in color.Surgery evaluated the patient, planning EGD and co lonoscopy 02/23. Patient seen and examined. Status post EGD and colonoscopy revealing antral gastritis and colitis. Patient being discharged on Flagyl for 1 week. PHYSICAL EXAMINATION: GENERAL: The patient is alert and oriented x3, not in any acute distress. Well developed, well nourished. HEENT: Pupils are round and equally reacting to light. EOMI. No scleral icterus. No conjunctival pallor. Normocephalic, atraumatic. No pharyngeal erythema. No thyromegaly. CARDIOVASCULAR: S1 and S2 present. No murmurs, rubs, or gallops. PULMONARY: Chest is clear to auscultation, no wheezing or crackles. ABDOMEN: Soft, nontender, nondistended, normoactive bowel sounds. No palpable organomegaly. MUSCULOSKELETAL: No joint swelling or deformity. EXTREMITIES: No cyanosis, clubbing, or pedal edema. NEUROLOGICAL: Gross neurological examination did not reveal any focal deficits. SKIN: No rashes. Dictation was produced using [employer] dictation software. please excuse any grammatical, word or spelling errors. Patient Condition at Discharge: Good Plan - Discharge Summary Discharge Rx Participant: No New Discharge Prescriptions: New metroNIDAZOLE [Flagyl] 500 mg PO TID 7 Days #21 tab Ferrous Sulfate [Feosol] 325 mg PO BID 30 Days #60 tab Pantoprazole Sodium [Protonix] 40 mg PO DAILY 30 Days #30 tab Continue Multivitamins, Thera [Multivitamin (formulary)] 1 tab PO DAILY Ascorbic Acid [Vitamin C] 500 mg PO DAILY Cholestyramine/Aspartame [Questran Light Powder] 1 scoop PO DAILY Atorvastatin [Lipitor] 10 mg PO DAILY Niacin 500 mg PO DAILY Metoprolol Tartrate [Lopressor] 25 mg PO BID Calcium Carbonate/Vitamin D3 [Calcium 600 mg-Vit D3 10 mcg (400 Unit)] 1 tab PO BID amLODIPine [Norvasc] 2.5 mg PO DAILY Nitroglycerin Sl Tabs [Nitrostat] 0.4 mg SUBLINGUAL Q5M PRN PRN Reason: Chest Pain Aspirin EC [Ecotrin Low Dose] 81 mg PO DAILY Discharge Medication List Ascorbic Acid [Vitamin C] 500 mg PO DAILY 06/05/21 [History] Calcium Carbonate/Vitamin D3 [Calcium 600 mg-Vit D3 10 mcg (400 Unit)] 1 tab PO BID 06/05/21 [History] Metoprolol Tartrate [Lopressor] 25 mg PO BID 06/05/21 [History] Multivitamins, Thera [Multivitamin (formulary)] 1 tab PO DAILY 06/05/21 [History] Niacin 500 mg PO DAILY 06/05/21 [History] Aspirin EC [Ecotrin Low Dose] 81 mg PO DAILY 02/22/24 [History] Atorvastatin [Lipitor] 10 mg PO DAILY 02/22/24 [History] Cholestyramine/Aspartame [Questran Light Powder] 1 scoop PO DAILY 02/22/24 [History] Nitroglycerin Sl Tabs [Nitrostat] 0.4 mg SUBLINGUAL Q5M PRN 02/22/24 [History] amLODIPine [Norvasc] 2.5 mg PO DAILY 02/22/24 [History] Ferrous Sulfate [Feosol] 325 mg PO BID 30 Days #60 tab 02/24/24 [Rx] Pantoprazole Sodium [Protonix] 40 mg PO DAILY 30 Days #30 tab 02/24/24 [Rx] metroNIDAZOLE [Flagyl] 500 mg PO TID 7 Days #21 tab 02/24/24 [Rx] Follow up Appointment(s)/Referral(s): Elgin Garber MD [Primary Care Provider] - 1-2 days Wellington Torres MD [STAFF PHYSICIAN] - 1 Week Discharge Disposition: HOME SELF-CARE
--- NOTE | 2024-02-26 10:11 | CDI ---
Documentation Clarification Form Date: 02/26/24 From: Adriana Moreno Admit Date: 02/22/2024 02:11:00 PM Patient Name: Itzel Pearson Visit Number: [id number] Discharge Date: 02/24/2024 03:22:00 PM ATTENTION: The Clinical Documentation Specialists (CDI) and [facility] Coding Staff appreciate your assistance in clarifying documentation. Please respond to the clarification below the line at the bottom and electronically sign. The CDI & [facility] Coding staff will review the response and follow-up if needed. Please note: Queries are made part of the Legal Health Record. If you have any questions, please contact the author of this message via ITS. Dr. Eros Malloy, GI bleed is documented in the consult. Additional clarification regarding the etiology of the GI bleed is requested. History/risk factors: HTN. CAD w stent, ABLA Clinical Indicators: Presents with syncopal episode. She has been dealing with diarrhea since her cholecystectomy. EGD/colonoscopy performed and findings: antral gastritis and colitis, no evidence of any lower GI bleed. Labs: Stool occult blood positive, HGB 6.8 Treatment: Please clarify the etiology of the GI bleed, if known: [ x] GIB due to colitis [x ] GIB due to antral gastrtis [ ] GIB, etiology unknown [ ] Other, please specify [ ] Unable to determine MTDD
== END 2024-02-24 15:22 | disposition home or self-care (01) | DRG 378 ==
LOC: EC 10:45 → 5NMEDONC 14:11 → 6NMEDSUR 23:16
PROVIDERS: ADMIT Internal Medicine; ATTEND Internal Medicine
PROC: 30233N1 Transfusion of Nonautologous Red Blood Cells into Peripheral Vein, Percutaneous Approach (ICD-10-PCS; 2024-02-22)
PROC: 0DB78ZX Excision of Stomach, Pylorus, Via Natural or Artificial Opening Endoscopic, Diagnostic (ICD-10-PCS; principal; 2024-02-24 07:30)
PROC: 0DBN8ZX Excision of Sigmoid Colon, Via Natural or Artificial Opening Endoscopic, Diagnostic (ICD-10-PCS; principal; 2024-02-24 07:30)
PROC: 0DBL8ZX Excision of Transverse Colon, Via Natural or Artificial Opening Endoscopic, Diagnostic (ICD-10-PCS; principal; 2024-02-24 07:30)
PROC: 0DBG8ZX Excision of Left Large Intestine, Via Natural or Artificial Opening Endoscopic, Diagnostic (ICD-10-PCS; principal; 2024-02-24 07:30)
PROC: 0DBP8ZX Excision of Rectum, Via Natural or Artificial Opening Endoscopic, Diagnostic (ICD-10-PCS; principal; 2024-02-24 07:30)
DX: K29.51 Unspecified chronic gastritis with bleeding (principal); D62 Acute posthemorrhagic anemia; K52.9 Noninfective gastroenteritis and colitis, unspecified; K92.1 Melena; D50.9 Iron deficiency anemia, unspecified; I10 Essential (primary) hypertension; E78.5 Hyperlipidemia, unspecified; I25.10 Atherosclerotic heart disease of native coronary artery without angina pectoris; I25.2 Old myocardial infarction; M54.9 Dorsalgia, unspecified; Z79.82 Long term (current) use of aspirin; Z79.899 Other long term (current) drug therapy; Z95.5 Presence of coronary angioplasty implant and graft
CPT/HCPCS: 36415; 36430; 43239; 45380; 71046; 80048; 80053; 82272; 82607; 82728; 82747; 83540; 83550; 83735; 84484; 85025; 85027; 86850; 86900; 86901; 86920; 88305; 88342; 93005; 96361; 96374; 99291

== ENCOUNTER 2024-06-21 11:37 | Inpatient (IN) | payer MEDICARE ==
--- NOTE | 2024-06-21 12:51 | ED ---
General Adult HPI - General Chief complaint: GI Bleed Stated complaint: GI Bleed Time Seen by Provider: 06/21/24 12:33 Source: patient, family, RN notes reviewed Mode of arrival: ambulatory Limitations: no limitations - History of Present Illness Initial comments: Patient is a 69-year-old female present to the emergency department with concerns for bleeding. Patient has had bleeding for the past couple of days. Patient has had history of several episodes over the past several years. Patient formally diagnosed with ulcerative colitis 6 months ago. Symptoms started this time 2 days ago. Patient is having blood mixed with her stool, 3 times today. Patient has some mild left lower abdominal discomfort. - Related Data Home Medications Medication Instructions Recorded Confirmed Ascorbic Acid [Vitamin C] 500 mg PO DAILY 06/05/21 06/21/24 Calcium Carbonate/Vitamin D3 1 tab PO DAILY 06/05/21 06/21/24 [Calcium 600 mg-Vit D3 10 mcg (400 Unit)] Metoprolol Tartrate [Lopressor] 25 mg PO BID 06/05/21 06/21/24 Multivitamins, Thera [Multivitamin 1 tab PO DAILY 06/05/21 06/21/24 (formulary)] Niacin 500 mg PO DAILY 06/05/21 06/21/24 Aspirin EC [Ecotrin Low Dose] 81 mg PO DAILY 02/22/24 06/21/24 Atorvastatin [Lipitor] 10 mg PO HS 02/22/24 06/21/24 Balsalazide Disodium 2,250 mg PO TID 06/21/24 06/21/24 Allergies Allergy/AdvReac Type Severity Reaction Status Date / Time No Known Allergies Allergy Verified 06/21/24 14:11 Review of Systems ROS Statement: Those systems with pertinent positive or pertinent negative responses have been documented in the HPI. ROS Other: All systems not noted in ROS Statement are negative. Constitutional: Denies: fever Eyes: Denies: eye pain ENT: Denies: ear pain Respiratory: Denies: cough Cardiovascular: Denies: chest pain Endocrine: Denies: fatigue Gastrointestinal: Reports: as per HPI, abdominal pain, hematochezia. Denies: melena Musculoskeletal: Denies: back pain Past Medical History Past Medical History: Coronary Artery Disease (CAD), Chest Pain / Angina, Hyperlipidemia, Hypertension, Myocardial Infarction ([place]) Additional Past Medical History / Comment(s): Kidney, ulcerative colitis, GI bleeding, GI fissures, Last Myocardial Infarction Date:: 2008 History of Any Multi-Drug Resistant Organisms: None Reported Past Surgical History: Cholecystectomy Additional Past Surgical History / Comment(s): Cardiac Stent, Kidney surg, upper and lower GI scope, Past Psychological History: No Psychological Hx Reported Smoking Status: Never smoker Past Alcohol Use History: None Reported Past Drug Use History: None Reported General Exam Limitations: no limitations General appearance: alert, in no apparent distress Head exam: Present: normocephalic Eye exam: Present: normal appearance Neck exam: Present: normal inspection Respiratory exam: Present: normal lung sounds bilaterally Cardiovascular Exam: Present: tachycardia GI/Abdominal exam: Present: soft, normal bowel sounds. Absent: distended, tenderness, guarding, rebound, rigid, pulsatile mass Rectal exam: Present: bloody stool. Absent: hemorrhoids, mass, tenderness Extremities exam: Present: normal inspection Neurological exam: Present: alert Psychiatric exam: Present: normal affect, normal mood Skin exam: Present: normal color Course Vital Signs 06/21/24 06/21/24 11:53 13:18 Temperature 98.0 F Pulse Rate 115 H 93 Respiratory 18 16 Rate Blood Pressure 123/75 114/67 O2 Sat by Pulse 100 95 Oximetry Medical Decision Making - Medical Decision Making Was pt. sent in by a medical professional or institution (, PA, FEEDER OPERATOR, urgent care, hospital, or alf...) When possible be specific @ -No Did you speak to anyone other than the patient for history (EMS, parent, family, police, friend...)? What history was obtained from this source @ -Family is present and helps provide additional history including history of colitis and previous admission Did you review nursing and triage notes (agree or disagree)? Why? @ -I reviewed and agree with nursing and triage notes Were old charts reviewed (outside hosp., previous admission, EMS record, old EKG, old radiological studies, urgent care reports/EKG's, alf records)? Report findings @ -Previous admission and scopes reviewed Differential Diagnosis (chest pain, altered mental status, abdominal pain women, abdominal pain men, vaginal bleeding, weakness, fever, dyspnea, syncope, he adache, dizziness, GI bleed, back pain, seizure, CVA, palpatations, mental health, musculoskeletal)? @ -Differential GI Bleed: Esophageal varices, aortoenteric fistula, Anyi-Barry, gastritis, peptic ulcer disease, diverticulosis, inflammatory bowel disease, hemorrhoids, fissure, colitis, malignancy, Meckel's diverticulum, this is not meant to be an all- inclusive list. EKG interpreted by me (3pts min.). @ -As above X-rays interpreted by me (1pt min.). @ -Abdominal x-ray does not reveal acute abnormality CT interpreted by me (1pt min.). @ -None done U/S interpreted by me (1pt. min.). @ -None done What testing was considered but not performed or refused? (CT, X-rays, U/S, labs)? Why? @ -None What meds were considered but not given or refused? Why? @ -None Did you discuss the management of the patient with other professionals (professionals i.e. , PA, FEEDER OPERATOR, lab, RT, psych nurse, web content & social media manager, community organizer, teacher, supply officer, nurse case management)? Give summary @ -Case discussed with Dr. Christie as well as Dr. Huynh, covering Dr. Bustillo who will admit covering Dr. Garber Was smoking cessation discussed for >3mins.? @ -No Was critical care preformed (if so, how long)? @ -No Were there social determinants of health that impacted care today? How? (Homelessness, low income, unemployed, alcoholism, drug addiction, transportation, low edu. Level, literacy, decrease access to med. care, long term, rehab)? @ -No Was there de-escalation of care discussed even if they declined (Discuss DNR or withdrawal of care, Hospice)? DNR status @ -No What co-morbidities impacted this encounter? (DM, HTN, Smoking, COPD, CAD, Cancer, CVA, ARF, Chemo, Hep., AIDS, mental health diagnosis, sleep apnea, morbid obesity)? @ -History of colitis Was patient admitted / discharged? Hospital course, mention meds given and route, prescriptions, significant lab abnormalities, going to OR and other pertinent info. @ -Patient presents with history of colitis with recurrent diarrhea and bright red blood per rectum. Patient does have some mild abdominal discomfort, symptoms similar to previous. Patient is tachycardic. Hemoglobin is stable. Patient will be admitted, admission orders written. Undiagnosed new problem with uncertain prognosis? @ -No Drug Therapy requiring intensive monitoring for toxicity (Heparin, Nitro, Insulin, Cardizem)? @ -No Were any procedures done? @ -No Diagnosis/symptom? @ -Colitis, GI hemorrhage Acute, or Chronic, or Acute on Chronic? @ -Acute, acute Uncomplicated (without systemic symptoms) or Complicated (systemic symptoms)? @ -Default Side effects of treatment? @ -No Exacerbation, Progression, or Severe Exacerbation? @ -No Poses a threat to life or bodily function? How? (Chest pain, [place], [place], pneumonia, PE, COPD, DKA, ARF, appy, cholecystitis, CVA, Diverticulitis, Homicidal, Suicidal, threat to staff... and all critical care pts) @ -Threat to intestinal and hematological - Lab Data Result diagrams: 06/21/24 13:02 06/21/24 13:02 Lab Results 06/21/24 06/21/24 06/21/24 Range/Units 13:02 13:02 13:02 WBC 10.5 (3.8-10.6) k/uL RBC 4.18 (3.80-5.40) m/uL Hgb 11.8 (11.4-16.0) gm/dL Hct 37.2 (34.0-46.0) % MCV 89.1 (80.0-100.0) fL MCH 28.2 (25.0-35.0) pg MCHC 31.7 (31.0-37.0) g/dL RDW 14.1 (11.5-15.5) % Plt Count 544 H (150-450) k/uL MPV 6.5 Neutrophils % (Manual) 47 % Band Neuts % (Manual) 2 % Lymphocytes % (Manual) 17 % Monocytes % (Manual) 8 % Eosinophils % (Manual) 27 % Neutrophils # (Manual) 5.10 (1.3-7.7) k/uL Lymphocytes # (Manual) 1.79 (1.0-4.8) k/uL Monocytes # (Manual) 0.84 (0-1.0) k/uL Eosinophils # (Manual) 2.84 H (0-0.7) k/uL Nucleated RBCs 0 (0-0) /100 WBC Manual Slide Review Performed Hypochromasia Slight PT 10.8 (10.0-12.5) sec INR 1.0 (<1.2) APTT 29.4 (22.0-30.0) sec Sodium 138 (137-145) mmol/L Potassium 3.7 (3.5-5.1) mmol/L Chloride 103 (98-107) mmol/L Carbon Dioxide 28 (22-30) mmol/L Anion Gap 7 mmol/L BUN 10 (7-17) mg/dL Creatinine 0.82 (0.52-1.04) mg/dL Est GFR (CKD-EPI)AfAm 83 (>60 ml/min/1.73 sqM) Est GFR (CKD-EPI)NonAf 72 (>60 ml/min/1.73 sqM) Glucose 89 (74-99) mg/dL Calcium 8.9 (8.4-10.2) mg/dL Magnesium 1.9 (1.6-2.3) mg/dL Total Bilirubin 0.7 (0.2-1.3) mg/dL AST 27 (14-36) U/L ALT 15 (4-34) U/L Alkaline Phosphatase 193 H (38-126) U/L Troponin I (0.000-0.034) ng/mL Total Protein 6.6 (6.3-8.2) g/dL Albumin 3.5 (3.5-5.0) g/dL Stool Occult Blood (Negative) 06/21/24 06/21/24 Range/Units 13:02 13:02 WBC (3.8-10.6) k/uL RBC (3.80-5.40) m/uL Hgb (11.4-16.0) gm/dL Hct (34.0-46.0) % MCV (80.0-100.0) fL MCH (25.0-35.0) pg MCHC (31.0-37.0) g/dL RDW (11.5-15.5) % Plt Count (150-450) k/uL MPV Neutrophils % (Manual) % Band Neuts % (Manual) % Lymphocytes % (Manual) % Monocytes % (Manual) % Eosinophils % (Manual) % Neutrophils # (Manual) (1.3-7.7) k/uL Lymphocytes # (Manual) (1.0-4.8) k/uL Monocytes # (Manual) (0-1.0) k/uL Eosinophils # (Manual) (0-0.7) k/uL Nucleated RBCs (0-0) /100 WBC Manual Slide Review Hypochromasia PT (10.0-12.5) sec INR (<1.2) APTT (22.0-30.0) sec Sodium (137-145) mmol/L Potassium (3.5-5.1) mmol/L Chloride (98-107) mmol/L Carbon Dioxide (22-30) mmol/L Anion Gap mmol/L BUN (7-17) mg/dL Creatinine (0.52-1.04) mg/dL Est GFR (CKD-EPI)AfAm (>60 ml/min/1.73 sqM) Est GFR (CKD-EPI)NonAf (>60 ml/min/1.73 sqM) Glucose (74-99) mg/dL Calcium (8.4-10.2) mg/dL Magnesium (1.6-2.3) mg/dL Total Bilirubin (0.2-1.3) mg/dL AST (14-36) U/L ALT (4-34) U/L Alkaline Phosphatase (38-126) U/L Troponin I <0.012 (0.000-0.034) ng/mL Total Protein (6.3-8.2) g/dL Albumin (3.5-5.0) g/dL Stool Occult Blood Positive H (Negative) Disposition Clinical Impression: Colitis Disposition: ADMITTED IP TO THIS [facility] Is patient prescribed a controlled substance at d/c from ED?: No Referrals: Elgin Garber MD [Primary Care Provider] - 1-2 days Time of Disposition: 14:57
[2024-06-21] MEDS: SODIUM CHLORIDE 0.9% 500 ML 500 ML IV STA (13:16)
[2024-06-21] MEDS: PANTOPRAZOLE 40 MG/10 ML VIAL IVP STA (13:18)
[2024-06-21 13:29] LABS: HCT 37.2 % (34.0-46.0); HGB 11.8 gm/dL (11.4-16.0); Hypochromasia Slight; MCH 28.2 pg (25.0-35.0); MCHC 31.7 g/dL (31.0-37.0); MCV 89.1 fL (80.0-100.0); Mean Platelet Volume 6.5; Platelet Count 544 k/uL (150-450); RBC 4.18 m/uL (3.80-5.40); RDW 14.1 % (11.5-15.5); WBC 10.5 k/uL (3.8-10.6)
--- NOTE | 2024-06-21 13:45 | XR ---
EXAMINATION TYPE: XR abdomen 1V DATE OF EXAM: 06/21/2024 1:39 PM CLINICAL INDICATION: Female, 69 years old with history of abp; [facility] COMPARISON: None. TECHNIQUE: One radiographic view of the abdomen was obtained. FINDINGS: The bowel gas pattern is nonspecific without dilated loops of small or large bowel. . Fecal material and gas are demonstrated throughout the colon and rectum. There is no evidence for organomegaly or pneumoperitoneum. The osseous structures are intact. No ab normal calcifications are present. Surgical clips project over the abdomen. IMPRESSION: Nonspecific bowel gas pattern without radiographic evidence for acute process. [facility], , 06/21/2024 1:43 PM
[2024-06-21 13:46] LABS: ALT 15 U/L (4-34); AST 27 U/L (14-36); African American GFR (CKD) 83 (>60 ml/min/1.73 sqM); Albumin 3.5 g/dL (3.5-5.0); Alkaline Phosphatase 193 U/L (38-126); Anion Gap 7 mmol/L; Blood Urea Nitrogen 10 mg/dL (7-17); Calcium 8.9 mg/dL (8.4-10.2); Carbon Dioxide 28 mmol/L (22-30); Chloride 103 mmol/L (98-107); Glucose 89 mg/dL (74-99); Magnesium 1.9 mg/dL (1.6-2.3); Non-African American GFR(CKD) 72 (>60 ml/min/1.73 sqM); Potassium 3.7 mmol/L (3.5-5.1); Sodium 138 mmol/L (137-145); Total Bilirubin 0.7 mg/dL (0.2-1.3); Total Protein 6.6 g/dL (6.3-8.2)
[2024-06-21 14:01] LABS: Partial Thromboplastin Time 29.4 sec (22.0-30.0); Prothrombin Time 10.8 sec (10.0-12.5)
[2024-06-21 14:38] LABS: Band Neutrophils % 2 %; Eosinophils # (M) 2.84 k/uL (0-0.7); Lymphocytes # (M) 1.79 k/uL (1.0-4.8); Monocytes # (M) 0.84 k/uL (0-1.0); Neutrophils % (M) 47 %; Nucleated Red Blood Cells 0 /100 WBC (0-0); Total Cells Counted 200
[2024-06-21] MEDS ORDERED: ALPRAZolam 0.25 MG TAB PO PRN (14:53)
[2024-06-21] MEDS ORDERED: DEXTROSE 50% SYRINGE 50 ML IVP PRN ×2 (14:54)
[2024-06-21] MEDS ORDERED: MORPHINE SULFATE 4 MG/ML SYRINGE IV PRN (14:57)
[2024-06-21] MEDS ORDERED: ACETAMINOPHEN TAB 325 MG TAB PO PRN (14:57)
[2024-06-21] MEDS ORDERED: NALOXONE 0.4 MG/ML 1 ML VIAL IV PRN (14:57)
[2024-06-21 15:29] LABS: Glucose,Whole Blood 86 mg/dL (70-110)
[2024-06-21] MEDS ORDERED: IOPAMIDOL CONTRAST (ORAL USE) VIAL PO PRN (16:15)
--- NOTE | 2024-06-21 16:15 | P.GSCN ---
History of Present Illness Consult date: 06/21/24 History of present illness: CHIEF COMPLAINT: Rectal bleeding HISTORY OF PRESENT ILLNESS: This is a 69-year-old female who presented with bright red blood per rectum x 2 days. She reports having a small amount of bleeding on the toilet paper when she wiped earlier in the week. But the bleeding has worsened over the last couple of days. She does report intermittent left lower quadrant abdominal pain. Currently the pain is resolved. And she is nontender. Patient was recently diagnosed with ulcerative colitis in February 2024. She has been taking the medications prescribed by her precision dancer. Just recently her precision dancer did and said that she could advance her diet. Patient has tried is to initiate some new foods into the diet. And that is when her diarrhea and bleeding seem to have started. But prior to that her ulcerative colitis was controlled with the medications. Mildly tachycardic on admission. PAST MEDICAL HISTORY: Ulcerative colitis, coronary Artery Disease (CAD), Chest Pain / Angina, Hyperlipidemia, Hypertension, Myocardial Infarction ([place]) PAST SURGICAL HISTORY: Cholecystectomy, cardiac stent MEDICATIONS: See below ALLERGIES: See below SOCIAL HISTORY: No illicit drug use. REVIEW OF SYSTEMS: CONSTITUTIONAL: Denies fever or chills. HEENT: Denies blurred vision, vision changes, or eye pain. Denies hemoptysis CARDIOVASCULAR: Denies chest pain or pressure. RESPIRATORY: No shortness of breath. GASTROINTESTINAL: See HPI for pertinent findings HEMATOLOGIC: Denies bleeding disorders. GENITOURINARY: Denies any blood in urine or increased urinary frequency. SKIN: Denies pruitis. Denies rash. PHYSICAL EXAM: VITAL SIGNS: Reviewed GENERAL: Well-developed in no acute distress. HEENT: No sclera icterus. Extraocular movements grossly intact. Moist buccal mucosa. Head is atraumatic, normocephalic. No nasal drainage. ABDOMEN: Soft. Nondistended. Nontender NEUROLOGIC: Alert and oriented. Cranial nerves II through XII grossly intact. LABORATORY DATA: WBC 10.5 Hgb 11.8 platelets 544 Sodium 138 potassium 3.7 creatinine 0.82 Stool for occult blood positive IMAGING: Abdominal x-ray nonspecific bowel gas pattern without acute process ASSESSMENT: 1. Ulcerative colitis flareup 2. Acute GI bleed likely due to her ulcerative colitis 3. Intermittent left lower quadrant abdominal pain PLAN: -CT scan abdomen pelvis with oral and IV contrast ordered for further evaluation of patient's colitis -Agree with IV steroids -Continue clear liquid diet -Recommend GI follow-up outpatient -Consult dietitian regarding diet education for ulcerative colitis -Repeat labs in a.m. Physician Docking Saw Operator note has been reviewed by physician. Signing provider agrees with the documented findings, assessment, and plan of care. Past Medical History Past Medical History: Coronary Artery Disease (CAD), Chest Pain / Angina, Hyperlipidemia, Hypertension, Myocardial Infarction ([place]) Additional Past Medical History / Comment(s): Kidney, ulcerative colitis, GI bleeding, GI fissures, Last Myocardial Infarction Date:: 2008 History of Any Multi-Drug Resistant Organisms: None Reported Past Surgical History: Cholecystectomy Additional Past Surgical History / Comment(s): Cardiac Stent, Kidney surg, upper and lower GI scope, Past Psychological History: No Psychological Hx Reported Smoking Status: Never smoker Past Alcohol Use History: None Reported Past Drug Use History: None Reported Medications and Allergies Home Medications Medication Instructions Recorded Confirmed Type Ascorbic Acid [Vitamin C] 500 mg PO DAILY 06/05/21 06/21/24 History Calcium Carbonate/Vitamin D3 1 tab PO DAILY 06/05/21 06/21/24 History [Calcium 600 mg-Vit D3 10 mcg (400 Unit)] Metoprolol Tartrate [Lopressor] 25 mg PO BID 06/05/21 06/21/24 History Multivitamins, Thera [Multivitamin 1 tab PO DAILY 06/05/21 06/21/24 History (formulary)] Niacin 500 mg PO DAILY 06/05/21 06/21/24 History Aspirin EC [Ecotrin Low Dose] 81 mg PO DAILY 02/22/24 06/21/24 History Atorvastatin [Lipitor] 10 mg PO HS 02/22/24 06/21/24 History Balsalazide Disodium 2,250 mg PO TID 06/21/24 06/21/24 History Allergies Allergy/AdvReac Type Severity Reaction Status Date / Time No Known Allergies Allergy Verified 06/21/24 14:11 Surgical - Exam Vital Signs Temp Pulse Resp BP Pulse Ox 98.0 F 115 H 18 123/75 100 06/21/24 11:53 06/21/24 11:53 06/21/24 11:53 06/21/24 11:53 06/21/24 11:53 Results - Labs 06/21/24 13:02 06/21/24 13:02 Abnormal Lab Results - Last 24 Hours (Table) 06/21/24 06/21/24 06/21/24 Range/Units 13:02 13:02 13:02 Plt Count 544 H (150-450) k/uL Eosinophils # (Manual) 2.84 H (0-0.7) k/uL Alkaline Phosphatase 193 H (38-126) U/L Stool Occult Blood Positive H (Negative) Diabetes panel 06/21/24 Range/Units 13:02 Sodium 138 (137-145) mmol/L Potassium 3.7 (3.5-5.1) mmol/L Chloride 103 (98-107) mmol/L Carbon Dioxide 28 (22-30) mmol/L BUN 10 (7-17) mg/dL Creatinine 0.82 (0.52-1.04) mg/dL Glucose 89 (74-99) mg/dL Calcium 8.9 (8.4-10.2) mg/dL AST 27 (14-36) U/L ALT 15 (4-34) U/L Alkaline Phosphatase 193 H (38-126) U/L Total Protein 6.6 (6.3-8.2) g/dL Albumin 3.5 (3.5-5.0) g/dL Calcium panel 06/21/24 Range/Units 13:02 Calcium 8.9 (8.4-10.2) mg/dL Albumin 3.5 (3.5-5.0) g/dL Pituitary panel 06/21/24 Range/Units 13:02 Sodium 138 (137-145) mmol/L Potassium 3.7 (3.5-5.1) mmol/L Chloride 103 (98-107) mmol/L Carbon Dioxide 28 (22-30) mmol/L BUN 10 (7-17) mg/dL Creatinine 0.82 (0.52-1.04) mg/dL Glucose 89 (74-99) mg/dL Calcium 8.9 (8.4-10.2) mg/dL Adrenal panel 06/21/24 Range/Units 13:02 Sodium 138 (137-145) mmol/L Potassium 3.7 (3.5-5.1) mmol/L Chloride 103 (98-107) mmol/L Carbon Dioxide 28 (22-30) mmol/L BUN 10 (7-17) mg/dL Creatinine 0.82 (0.52-1.04) mg/dL Glucose 89 (74-99) mg/dL Calcium 8.9 (8.4-10.2) mg/dL Total Bilirubin 0.7 (0.2-1.3) mg/dL AST 27 (14-36) U/L ALT 15 (4-34) U/L Alkaline Phosphatase 193 H (38-126) U/L Total Protein 6.6 (6.3-8.2) g/dL Albumin 3.5 (3.5-5.0) g/dL
[2024-06-21] MEDS: methylPREDNISolone SOD SUCCI 40 MG/ML 1 ML VIAL IV SCH (16:51)
[2024-06-21] MEDS: SODIUM CHLORIDE 0.9% 1,000 ML IV SCH (16:55)
[2024-06-21] MEDS: BALSALAZIDE DISODIUM 750 MG CAPSULE PO SCH (16:55)
[2024-06-21] MEDS: INSULIN ASPART (NovoLOG) 100 UNIT/ML VIAL SQ SCH (17:29)
[2024-06-21 17:30] LABS: Glucose,Whole Blood 80 mg/dL (70-110)
[2024-06-21 19:42] LABS: Glucose,Whole Blood 105 mg/dL (70-110)
--- NOTE | 2024-06-21 21:34 | HP ---
HISTORY AND PHYSICAL CHIEF COMPLAINT: Lower GI bleed and as well as abdominal discomfort. HISTORY OF PRESENT ILLNESS: This is a 69-year-old woman with a past medical history of CAD, hypertension, history of myocardial infarction, history of ulcerative colitis, being followed by Dr. Bass in the outpatient setting, was complaining of lower GI bleeding with spotting and bleeding for the past couple of days. The patient has several episodes. The patient came to [facility] and admitted for further evaluation and treatment. Currently, hemoglobin is maintained well at 11.8. There is no history of any fever, rigors, or chills. The patient has mild tachycardia and PVCs also. PAST MEDICAL HISTORY: Reviewed include CAD stent, hypertension, hyperlipidemia. Rest of the history and rest of the chart is also reviewed. HOME MEDICATIONS: Reviewed include Lipitor, aspirin. Dose and rest of medications noted. ALLERGIES: None. FAMILY HISTORY: No history of heart disease or strokes in the family. SOCIAL HISTORY: No history of smoking. REVIEW OF SYSTEMS: Fourteen-point review is negative except as mentioned earlier. PHYSICAL EXAMINATION: VITAL SIGNS: Pulse is 93, blood pressure 140/64, respirations 16. HEENT: Conjunctivae normal. NECK: No JVD. CARDIOVASCULAR: S1, S2. RESPIRATIONS: Breath sounds diminished at the bases. No rhonchi. No crackles. ABDOMEN: Soft, mild diffuse discomfort in the left lower quadrant. NERVOUS SYSTEM: Nonfocal. SKIN: No ulcer, rash, bleeding. JOINTS: No active deforming arthropathy. LABORATORY DATA: Noted. Hemoglobin 11.8. ASSESSMENT: 1. Acute ulcerative colitis, acute exacerbation. 2. History of coronary artery disease stent. 3. Lower gastrointestinal bleeding. 4. History of hypertension. 5. Hyperlipidemia. 6. Multiple complex medical issues. RECOMMENDATIONS AND DISCUSSION: This is a 69-year-old woman, who presented with multiple complex medical issues, we will monitor the patient closely. Continue the current medications, continue symptomatic treatment. Otherwise, at this time, I recommend intravenous steroids for the ulcerative colitis exacerbation. Surgery and as well as Cardiology consultations. Resume the home medications. DVT prophylaxis. Hold antiplatelet agents currently. Prognosis extremely guarded because of multiple complex medical issues. Further recommendations to follow. See orders for further details. MMODL / IJN: [id number] /
[2024-06-21] MEDS: METOPROLOL TARTRATE 25 MG TAB PO SCH (22:28)
[2024-06-21] MEDS: HEPARIN SODIUM,PORCINE 5,000 UNIT/ML 1 ML VIAL SQ SCH (22:28)
[2024-06-21] MEDS: ATORVASTATIN 10 MG TAB PO SCH (22:28)
[2024-06-22 08:19] LABS: Glucose,Whole Blood 114 mg/dL (70-110)
--- NOTE | 2024-06-22 08:41 | CT ---
EXAMINATION TYPE: CT abdomen pelvis w con CT DLP: 613.3 mGycm, Automated exposure control for dose reduction was used. DATE OF EXAM: 06/21/2024 6:40 PM COMPARISON: None CLINICAL INDICATION: Female, 69 years old with history of LLQ pain, GIB, HX ulcerative colitis; abdom inal pain, colitis TECHNIQUE: Axial CT abdomen pelvis w con;Sagittal and coronal reformats were created on a separate w orkstation. Contrast used:100 mL of Isovue 300 with IV Contrast, (none if empty) Oral contrast used: with Oral Contrast (none if empty) FINDINGS: LOWER CHEST: Unremarkable ABDOMEN LIVER: Unremarkable GALLBLADDER AND BILE DUCTS: The gallbladder surgically absent. PANCREAS: Unremarkable. SPLEEN: Unremarkable. ADRENAL GLANDS: Unremarkable. KIDNEYS AND URETERS: No evidence of hydronephrosis or renal calculus. The ureters are unremarkable. L arge left renal cortical cysts measuring up tor 6.3 cm.. PELVIS BLADDER: Unremarkable REPRODUCTIVE: Unremarkable. ABDOMEN & PELVIS STOMACH AND BOWEL: No evidence of bowel obstruction. Circumferential wall prominence of the colon mos t pronounced in the sigmoid colon and rectum with hyperemia of the mucosa. No organizing fluid collec tions or evidence for perforation. PERITONEUM/RETROPERITONEUM: No evidence of pneumoperitoneum or free fluid. VASCULATURE: No evidence of aortic aneurysm. Dilated portal vein measuring up to 18 mm. MUSCULOSKELETAL: No acute osseous abnormalities. Mild disc degeneration changes are present throughou t the thoracolumbar spine. Surgical clips in the left renal fossa. LYMPH NODES: No gross evidence for lymphadenopathy. SOFT TISSUE/ABDOMINAL WALL: Unremarkable IMPRESSION: 1. Colitis without evidence for perforation or organizing fluid collection. There is prominent lymph nodes along the course of the colon likely reactive. 2. Dilated portal vein, correlate for portal hypertension. [facility], , 06/22/2024 8:39 AM
[2024-06-22] MEDS: PANTOPRAZOLE 40 MG TABLET PO SCH (08:46)
[2024-06-22] MEDS: ASPIRIN 81 MG PO SCH (08:46)
[2024-06-22] MEDS: ASCORBIC ACID 500 MG TAB PO SCH (08:46)
[2024-06-22] MEDS: NIACIN TR 500 MG CAPLET PO SCH (08:47)
[2024-06-22] MEDS: MULTIVITAMINS, THERA 1 EACH TAB PO SCH (08:47)
[2024-06-22 09:30] LABS: Blood Urea Nitrogen 7.6 mg/dL (9.0-27.0); Calcium 8.6 mg/dL (8.7-10.3); Carbon Dioxide 23.4 mmol/L (21.6-31.8); Chloride 108 mmol/L (96-109); Glucose 133 mg/dL (70-110); Potassium 4.2 mmol/L (3.5-5.5); Sodium 143 mmol/L (135-145)
[2024-06-22 09:32] LABS: Basophils # (A) 0.02 X 10*3/uL (0.00-0.10); Basophils % (A) 0.3 %; Eosinophils # (A) 0.01 X 10*3/uL (0.04-0.35); Eosinophils % (A) 0.2 %; HCT 36.3 % (37.2-46.3); Lymphocytes # (A) 0.82 X 10*3/uL (0.90-5.00); Lymphocytes % (A) 13.6 %; MCH 27.2 pg (27.0-32.0); MCHC 30.3 g/dL (32.0-37.0); MCV 89.6 FL (80.0-97.0); Mean Platelet Volume 8.7 FL (9.5-12.2); Monocytes # (A) 0.24 X 10*3/uL (0.20-1.00); NRBC Per 100 WBC 0 X 10*3/uL (0.00-0.01); Neutrophils # (A) 4.92 X 10*3/uL (1.80-7.70); Neutrophils % (A) 81.2 %; Platelet Count 460 X 10*3/uL (140-440); RBC 4.05 X 10*6/uL (4.10-5.20); RDW 14.3 % (11.5-14.5); WBC 6.05 X 10*3/uL (4.50-10.00)
[2024-06-22] MEDS: ENOXAPARIN 40 MG/0.4 ML SYRINGE SQ SCH (11:22)
[2024-06-22 12:19] LABS: Glucose,Whole Blood 159 mg/dL (70-110)
--- NOTE | 2024-06-22 12:26 | P.PN ---
Subjective Progress Note Date: 06/22/24 CHIEF COMPLAINT: Ulcerative colitis flareup HISTORY OF PRESENT ILLNESS: Patient mid to the hospital with GI bleed and ulcerative colitis flareup. Patient reports 3 bowel movements during the night with blood and 2 bowel movements this morning with blood. Patient reports that the frequency of the stools is decreasing and the stools are less watery since starting the IV steroids. Vital stable. Hemoglobin stable 11.0 CT scan abdomen pelvis reports colitis without evidence for perforation organizing fluid collection.. there is prominent lymph nodes along the course of the colon likely reactive. Dilated portal vein, correlate for portal hypertension PHYSICAL EXAM: VITAL SIGNS: Reviewed. GENERAL: Well-developed in no acute distress. ABDOMEN: Soft. Nondistended. Nontender. NEUROLOGIC: Alert and oriented. Cranial nerves II through XII grossly intact. ASSESSMENT: 1. Ulcerative colitis flareup 2. Acute GI bleed due to her ulcerative colitis PLAN: -Continue IV steroids -No surgical intervention planned -No plans for endoscopy Physician Fastener Technologist note has been reviewed by physician. Signing provider agrees with the documented findings, assessment, and plan of care. Objective - Vital Signs Vital signs: Vital Signs Temp 97.6 F 06/22/24 07:16 Pulse 78 06/22/24 10:25 Resp 18 06/22/24 07:16 BP 107/62 06/22/24 10:25 Pulse Ox 96 06/22/24 07:16 FiO2 Intake & Output 06/21/24 06/22/24 06/22/24 18:59 06:59 18:59 Intake Total 1155 600 Balance 1155 600 Weight 61.235 kg 61.235 kg Intake: Oral 1155 600 Other: Voiding Method Toilet - Labs CBC & Chem 7: 06/22/24 04:49 06/22/24 04:49 Labs: Abnormal Lab Results - Last 24 Hours (Table) 06/21/24 06/21/24 06/21/24 Range/Units 13:02 13:02 13:02 RBC (4.10-5.20) X 10*6/uL Hgb (12.0-15.0) g/dL Hct (37.2-46.3) % MCHC (32.0-37.0) g/dL Plt Count 544 H (150-450) k/uL MPV (9.5-12.2) FL Lymphocytes # (0.90-5.00) X 10*3/uL Eosinophils # (0.04-0.35) X 10*3/uL Eosinophils # (Manual) 2.84 H (0-0.7) k/uL BUN (9.0-27.0) mg/dL BUN/Creatinine Ratio (12.00-20.00) Ratio Glucose (70-110) mg/dL POC Glucose (mg/dL) (70-110) mg/dL Calcium (8.7-10.3) mg/dL Alkaline Phosphatase 193 H (38-126) U/L Stool Occult Blood Positive H (Negative) 06/22/24 06/22/24 06/22/24 Range/Units 04:49 04:49 08:16 RBC 4.05 L (4.10-5.20) X 10*6/uL Hgb 11.0 L (12.0-15.0) g/dL Hct 36.3 L (37.2-46.3) % MCHC 30.3 L (32.0-37.0) g/dL Plt Count 460 H (150-450) k/uL MPV 8.7 L (9.5-12.2) FL Lymphocytes # 0.82 L (0.90-5.00) X 10*3/uL Eosinophils # 0.01 L (0.04-0.35) X 10*3/uL Eosinophils # (Manual) (0-0.7) k/uL BUN 7.6 L (9.0-27.0) mg/dL BUN/Creatinine Ratio 9.50 L (12.00-20.00) Ratio Glucose 133 H (70-110) mg/dL POC Glucose (mg/dL) 114 H (70-110) mg/dL Calcium 8.6 L (8.7-10.3) mg/dL Alkaline Phosphatase (38-126) U/L Stool Occult Blood (Negative) 06/22/24 Range/Units 12:17 RBC (4.10-5.20) X 10*6/uL Hgb (12.0-15.0) g/dL Hct (37.2-46.3) % MCHC (32.0-37.0) g/dL Plt Count (150-450) k/uL MPV (9.5-12.2) FL Lymphocytes # (0.90-5.00) X 10*3/uL Eosinophils # (0.04-0.35) X 10*3/uL Eosinophils # (Manual) (0-0.7) k/uL BUN (9.0-27.0) mg/dL BUN/Creatinine Ratio (12.00-20.00) Ratio Glucose (70-110) mg/dL POC Glucose (mg/dL) 159 H (70-110) mg/dL Calcium (8.7-10.3) mg/dL Alkaline Phosphatase (38-126) U/L Stool Occult Blood (Negative)
[2024-06-22 14:18] VITALS: BMI 21.7
--- NOTE | 2024-06-22 14:56 | P.CRDCN ---
History of Present Illness Consult date: 06/22/24 Reason for Consult (text): CAD History of present illness: This is a 69-year-old female patient of Dr. Alejandra Bass with past medical history of coronary artery disease status post angioplasty, hypertension, dyslipidemia. We have been asked to evaluate the patient for CAD. Patient gives history that in February she was diagnosed with ulcerative colitis after she had a syncopal episode at home. She was recently in the office with Dr. Bass and blood pressure readings were running on the low side and amlodipine was discontinued. Patient presented to the hospital due to a second episode of ulcerative colitis. She states she had left groin pain and bloody stools. Her blood pressure remains on the lower side and beta-sabine has been placed on hold. She feels that she has not been following her UC diet very well at home. Patient has been seen by general surgery, started on IV steroids. Blood pressure 96/91573/73, heart rate 92, pulse ox 96% on room air. Laboratory studies: WBC 6, hemoglobin 11. Sodium 143, potassium 4.2, BUN 7.6 and creatinine 0.8. Stool for occult blood was positive. Home cardiac medications: Aspirin 81 mg daily, atorvastatin 10 mg at bedtime, Lopressor 25 mg twice daily. 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 Mild pulmonic regurgitation. Review Of Systems: At the time of my exam: CONSTITUTIONAL: Denies fever or chills. HEENT: Denies blurred vision, vision changes, or eye pain. Denies hemoptysis CARDIOVASCULAR: Denies chest pain. Denies orthopnea. Denies PND. Denies palpitations RESPIRATORY: Denies shortness of breath. GASTROINTESTINAL: Denies abdominal pain. Denies nausea or vomiting. HEMATOLOGIC: Denies bleeding disorders. GENITOURINARY: Denies any blood in urine. SKIN: Denies puritis. Denies rash. Physical examination: Gen: This is a 69-year-old female resting in bed appears to be comfortable and in no acute distress VS: reviewed HEENT: Head is atraumatic, normocephalic. Pupils equal, round. Sclerae is anicteric. NECK: Supple. No JVD. LUNGS: Clear to auscultation. No wheezes or rhonchi. No intercostal retractions. HEART: Regular rate and rhythm. No murmur. ABDOMEN: Soft No tenderness. EXTREMITIES: No pedal edema. No calf tenderness. NEUROLOGICAL: Patient is awake, alert and oriented x3. Assessment: Ulcerative colitis History of coronary artery disease with no complaints of chest pain History of coronary artery disease status post angioplasty Hypertension Dyslipidemia Plan: Continue patient's home cardiac medications Agree with holding metoprolol tartrate due to low blood pressure readings Aspirin may be discontinued at this point as patient is greater than 1 year from last PCI Cardiology will sign off this case and follow on an as-needed basis. Please reconsult for any new concerns. Patient may follow-up in the office in one to 2 weeks. Thank you kindly for this consultation. Nurse practitioner note has been reviewed, I agree with documented findings and plan of care. Patient was seen and examined. Past Medical History Past Medical History: Coronary Artery Disease (CAD), Hyperlipidemia, Hypertension, Myocardial Infarction (NC) Additional Past Medical History / Comment(s): Kidney, ulcerative colitis, GI bleeding, GI fissures. Last Myocardial Infarction Date:: 2009 History of Any Multi-Drug Resistant Organisms: None Reported Past Surgical History: Appendectomy, Cholecystectomy Additional Past Surgical History / Comment(s): Cardiac Stent, Kidney surg 1982, upper and lower GI scope. Past Anesthesia/Blood Transfusion Reactions: No Reported Reaction Past Psychological History: No Psychological Hx Reported Smoking Status: Never smoker Past Alcohol Use History: None Reported Past Drug Use History: None Reported - Past Family History Mother Family Medical History: Coronary Artery Disease (CAD), Diabetes Mellitus Father Family Medical History: Coronary Artery Disease (CAD), Diabetes Mellitus Medications and Allergies Home Medications Medication Instructions Recorded Confirmed Type Ascorbic Acid [Vitamin C] 500 mg PO DAILY 06/05/21 06/21/24 History Calcium Carbonate/Vitamin D3 1 tab PO DAILY 06/05/21 06/21/24 History [Calcium 600 mg-Vit D3 10 mcg (400 Unit)] Metoprolol Tartrate [Lopressor] 25 mg PO BID 06/05/21 06/21/24 History Multivitamins, Thera [Multivitamin 1 tab PO DAILY 06/05/21 06/21/24 History (formulary)] Niacin 500 mg PO DAILY 06/05/21 06/21/24 History Aspirin EC [Ecotrin Low Dose] 81 mg PO DAILY 02/22/24 06/21/24 History Atorvastatin [Lipitor] 10 mg PO HS 02/22/24 06/21/24 History Balsalazide Disodium 2,250 mg PO TID 06/21/24 06/21/24 History Allergies Allergy/AdvReac Type Severity Reaction Status Date / Time No Known Allergies Allergy Verified 06/21/24 14:11 Physical Exam Vitals: Vital Signs Temp Pulse Pulse Resp BP BP Pulse Ox 06/22/24 10:23 92 123/73 06/22/24 07:16 97.6 F 71 18 96/56 96 06/22/24 01:35 97.8 F 76 12 96/61 96 06/21/24 20:00 98.1 F 97 14 112/63 95 06/21/24 19:36 97.4 F L 92 14 107/69 98 06/21/24 16:49 98.7 F 90 20 118/63 96 06/21/24 13:18 93 16 114/67 95 06/21/24 11:53 98.0 F 115 H 18 123/75 100 Intake and Output 06/21/24 06/22/24 06/22/24 22:59 06:59 14:59 Intake Total 1155 600 Balance 1155 600 Intake: Oral 1155 600 Other: Voiding Method Toilet Weight 61.235 kg Results 06/22/24 04:49 06/22/24 04:49 Cardiac Enzymes 06/21/24 06/21/24 Range/Units 13:02 13:02 AST 27 (14-36) U/L Troponin I <0.012 (0.000-0.034) ng/mL Coagulation 06/21/24 Range/Units 13:02 PT 10.8 (10.0-12.5) sec APTT 29.4 (22.0-30.0) sec CBC 06/21/24 06/22/24 Range/Units 13:02 04:49 WBC 10.5 6.05 (3.8-10.6) k/uL RBC 4.18 4.05 L (3.80-5.40) m/uL Hgb 11.8 11.0 L (11.4-16.0) gm/dL Hct 37.2 36.3 L (34.0-46.0) % Plt Count 544 H 460 H (150-450) k/uL Comprehensive Metabolic Panel 06/21/24 06/22/24 Range/Units 13:02 04:49 Sodium 138 143 (137-145) mmol/L Potassium 3.7 4.2 (3.5-5.1) mmol/L Chloride 103 108 (98-107) mmol/L Carbon Dioxide 28 23.4 (22-30) mmol/L BUN 10 7.6 L (7-17) mg/dL Creatinine 0.82 0.8 (0.52-1.04) mg/dL Glucose 89 133 H (74-99) mg/dL Calcium 8.9 8.6 L (8.4-10.2) mg/dL AST 27 (14-36) U/L ALT 15 (4-34) U/L Alkaline Phosphatase 193 H (38-126) U/L Total Protein 6.6 (6.3-8.2) g/dL Albumin 3.5 (3.5-5.0) g/dL Current Medications Generic Name Dose Route Start Last Admin Trade Name Freq PRN Reason Stop Dose Admin Acetaminophen 650 mg 06/21/24 14:57 Acetaminophen Tab 325 Mg Tab PO Q6HR PRN Mild Pain or Fever > 100.5 Alprazolam 0.25 mg 06/21/24 14:53 Alprazolam 0.25 Mg Tab PO TID PRN Anxiety Ascorbic Acid 500 mg 06/22/24 09:00 06/22/24 08:46 Ascorbic Acid 500 Mg Tab PO 500 mg DAILY ANGEL LUIS Administration Aspirin 81 mg 06/22/24 09:00 06/22/24 08:46 Aspirin 81 Mg PO 81 mg DAILY ANGEL LUIS Administration Atorvastatin Calcium 10 mg 06/21/24 21:00 06/21/24 22:28 Atorvastatin 10 Mg Tab PO 10 mg HS ANGEL LUSI Administration Balsalazide 2,250 mg 06/21/24 16:00 06/22/24 08:47 Balsalazide Disodium 750 Mg Capsule PO 2,250 mg TID ANGEL LUIS Administration Dextrose/Water 25 ml 06/21/24 14:54 Dextrose 50% Syringe 50 Ml IVP PER PROTOCOL PRN Hypoglycemia Protocol Dextrose/Water 50 ml 06/21/24 14:54 Dextrose 50% Syringe 50 Ml IVP PER PROTOCOL PRN Hypoglycemia Protocol Enoxaparin Sodium 40 mg 06/22/24 10:30 Enoxaparin 40 Mg/0.4 Ml Syringe SQ DAILY ANGEL LUIS Sodium Chloride 1,000 mls @ 75 mls/hr 06/21/24 15:00 06/22/24 06:38 Saline 0.9% IV Not Given .[id number] ANGEL LUIS Insulin Aspart 0 unit 06/21/24 17:30 06/22/24 08:42 Insulin Aspart (Novolog) 100 Unit/Ml Vial SQ Not Given ACHS ANGEL LUIS Protocol Iopamidol 30 ml 06/21/24 16:15 Iopamidol Contrast (Oral Use) Vial PO 06/22/24 16:[address] Scan Methylprednisolone Sodium Succinate 40 mg 06/21/24 15:00 06/22/24 08:46 Methylprednisolone Sod Succi 40 Mg/Ml 1 Ml Vial IV 40 mg Q8H ANGEL LUIS Administration Multivitamins 1 each 06/22/24 09:00 06/22/24 08:47 Multivitamins, Thera 1 Each Tab PO 1 each DAILY ANGEL LUIS Administration Naloxone HCl 0.2 mg 06/21/24 14:57 Naloxone 0.4 Mg/Ml 1 Ml Vial IV Q2M PRN Opioid Reversal Niacin 500 mg 06/22/24 09:00 06/22/24 08:47 Niacin Tr 500 Mg Caplet PO 500 mg DAILY ANGEL LUIS Administration Pantoprazole Sodium 40 mg 06/22/24 07:30 06/22/24 08:46 Pantoprazole 40 Mg Tablet PO 40 mg [id number] ANGEL LUIS Administration Intake and Output 06/21/24 06/22/24 06/22/24 22:59 06:59 14:59 Intake Total 1155 600 Balance 1155 600 Intake: Oral 1155 600 Other: Voiding Method Toilet Weight 61.235 kg 06/22/24 04:49 06/22/24 04:49
[2024-06-22 17:25] LABS: Glucose,Whole Blood 174 mg/dL (70-110)
[2024-06-22 20:10] LABS: Glucose,Whole Blood 117 mg/dL (70-110)
--- NOTE | 2024-06-22 22:13 | P.PN ---
Progress Note - Text Progress Note Date: 06/22/24 Presenting complaint: Syncope, diarrhea Hospital course: Patient was diagnosed with ulcerative colitis in February 2024. Been having diarrhea symptoms about a year and a half. Follows with community health agent Dr. Caden Bass. At baseline patient normally has 3-4 bowel movements a day. Patient also has unknown under lying hypoglycemia. Patient was in the [place] when she stood up she felt dizzy lightheaded. Sat down again. Got up again. Her felt funny again. Denied any chest pain or palpitation. For last 4 to 5 days patient been having 5-6 bowel movements a day. Some decrease in appetite. Then subsequent about 2 dizzy episodes in the chest patient passed out. Denies any significant abdominal pain. No fever no chills. Patient is being treated for ulcerative colitis flareup with IV Solu-Medrol. June 22: Did tolerate clear liquid diet. Denies any abdominal pain. No nausea vomiting. Advance to full liquid. Orthostatic was checked today. Negative. Cut back IV fluids. Increase activity. Active Medications Acetaminophen (Acetaminophen Tab 325 Mg Tab) 650 mg PO Q6HR PRN PRN Reason: Mild Pain or Fever > 100.5 Alprazolam (Alprazolam 0.25 Mg Tab) 0.25 mg PO TID PRN PRN Reason: Anxiety Ascorbic Acid (Ascorbic Acid 500 Mg Tab) 500 mg PO DAILY [facility] Last Admin: 06/22/24 08:46 Dose: 500 mg Atorvastatin Calcium (Atorvastatin 10 Mg Tab) 10 mg PO HS [facility] Last Admin: 06/22/24 21:32 Dose: 10 mg Balsalazide (Balsalazide Disodium 750 Mg Capsule) 2,250 mg PO TID [facility] Last Admin: 06/22/24 21:32 Dose: Not Given Dextrose/Water (Dextrose 50% Syringe 50 Ml) 25 ml IVP PER PROTOCOL PRN; Protocol PRN Reason: Hypoglycemia Dextrose/Water (Dextrose 50% Syringe 50 Ml) 50 ml IVP PER PROTOCOL PRN; Protocol PRN Reason: Hypoglycemia Enoxaparin Sodium (Enoxaparin 40 Mg/0.4 Ml Syringe) 40 mg SQ DAILY [facility] Last Admin: 06/22/24 11:22 Dose: Not Given Sodium Chloride (Saline 0.9%) 1,000 mls @ 75 mls/hr IV .[id number] [facility] Last Admin: 10/15/24 21:32 Dose: 75 mls/hr Insulin Aspart (Insulin Aspart (Novolog) 100 Unit/Ml Vial) 0 unit SQ ACHS [facility]; Protocol Last Admin: 06/22/24 21:30 Dose: Not Given Methylprednisolone Sodium Succinate (Methylprednisolone Sod Succi 40 Mg/Ml 1 Ml Vial) 40 mg IV Q8H [facility] Last Admin: 06/22/24 16:48 Dose: 40 mg Multivitamins (Multivitamins, Thera 1 Each Tab) 1 each PO DAILY [facility] Last Admin: 06/22/24 08:47 Dose: 1 each Naloxone HCl (Naloxone 0.4 Mg/Ml 1 Ml Vial) 0.2 mg IV Q2M PRN PRN Reason: Opioid Reversal Niacin (Niacin Tr 500 Mg Caplet) 500 mg PO DAILY [facility] Last Admin: 06/22/24 08:47 Dose: 500 mg Pantoprazole Sodium (Pantoprazole 40 Mg Tablet) 40 mg PO AC-BRKFST [facility] Last Admin: 06/22/24 08:46 Dose: 40 mg Physical examination: VITAL SIGNS: 97.5, 70, 16, no orthostatic. Blood pressure 107 x 65, 96% room air GENERAL: [BMI 21.8, laying bed awake not in distress. EYES: Pupils equal. Conjunctiva alan l. HEENT: External appearance of nose and ears normal, oral cavity grossly normal. NECK: JVD not raised; masses not palpable. HEART: First and second heart sounds are normal; no edema. LUNGS: Respiratory rate normal; clear to auscultation. ABDOMEN: Soft, nontender, liver spleen not palpable, no masses palpable. PSYCH: Alert and oriented x3; mood and affect alan l. MUSCULOSKELETAL:No Clubbing/cyanosis;muscles-grossly intact INVESTIGATIONS, reviewed in the clinical context: June 22: White count 6.0 hemoglobin 11 platelets 460 sodium 143 potassium 4.2 BUN 7.[address] abdomen pelvis with contrast: Circumferential wall prominence of the colon most pronounced in the sigmoid colon and rectum with hyperemia of the mucosa Assessment plan: -Acute ulcerative colitis exacerbation. Patient had symptoms for a year and a half with diagnosis and February 2024. Execute exacerbation last 5 days. With about 5-6 bowel movements a day. Decreased appetite. GI services not available in the hospital. Currently tolerating clear liquid diet. Advance to full liquid diet. Continue IV Solu-Medrol -Syncope likely vasovagal given that patient had decreased oral intake increased diarrhea for last 4 to [address] patient on telemetry overnight. -Normocytic anemia likely of chronic disease from ulcerative colitis -Hyperlipidemia Lipitor 10 mg nightly -Essential hypertension Lopressor 25 mg twice daily -Full code DC IV fluids. Changed to full liquid diet. Continue current medications. Telemetry. Discussed with patient. Increase activity.
[2024-06-23 01:50] VITALS: RESP 16
[2024-06-23 07:18] LABS: Glucose,Whole Blood 127 mg/dL (70-110)
[2024-06-23 07:41] VITALS: BP 106/57; PULSE 67; TEMP 97.8
--- NOTE | 2024-06-23 11:16 | P.PN ---
Subjective Progress Note Date: 06/23/24 CHIEF COMPLAINT: Ulcerative colitis flareup HISTORY OF PRESENT ILLNESS: Patient mid to the hospital with ulcerative colitis flareup. No new complaints. Per nursing staff patient is having less blood in the stools. PHYSICAL EXAM: VITAL SIGNS: Reviewed. GENERAL: Well-developed in no acute distress. ABDOMEN: Soft. Nondistended. Nontender. NEUROLOGIC: Alert and oriented. Cranial nerves II through XII grossly intact. ASSESSMENT: 1. Ulcerative colitis flareup PLAN: -Continue IV steroids -No surgical intervention planned -No plans for endoscopy Physician Gas Station Supervisor note has been reviewed by physician. Signing provider agrees with the documented findings, assessment, and plan of care. Objective - Vital Signs Vital signs: Vital Signs Temp 97.8 F 06/23/24 07:13 Pulse 67 06/23/24 07:13 Resp 16 06/23/24 07:13 BP 106/57 06/23/24 07:13 Pulse Ox 97 06/23/24 07:13 FiO2 Intake & Output 06/22/24 06/23/24 06/23/24 18:59 06:59 18:59 Intake Total 2320 240 Balance 2320 240 Weight 61.235 kg Intake: Oral 2320 240 Other: Voiding Method Toilet Toilet # Voids 1 3 - Labs CBC & Chem 7: 06/22/24 04:49 06/22/24 04:49 Labs: Abnormal Lab Results - Last 24 Hours (Table) 06/22/24 06/22/24 06/22/24 Range/Units 12:17 17:24 20:09 POC Glucose (mg/dL) 159 H 174 H 117 H (70-110) mg/dL 06/23/24 Range/Units 07:16 POC Glucose (mg/dL) 127 H (70-110) mg/dL
--- NOTE | 2024-06-23 16:42 | P.DS ---
Providers Date of admission: 06/21/24 14:57 Expected date of discharge: 06/23/24 Attending physician: Rakan Bustillo Consults: 06/21/24 14:57 Consult Physician Routine Consulting Provider: Wellington Torres Consult Reason/Comments: colitis Do you want consulting provider notified?: Yes 06/21/24 15:04 Consult Physician Routine Consulting Provider: Srinath Tom Consult Reason/Comments: cad Do you want consulting provider notified?: Yes Primary care physician: [facility] Course: Presenting complaint: Syncope, diarrhea Hospital course: Patient was diagnosed with ulcerative colitis in February 2024. Been having diarrhea symptoms about a year and a half. Follows with supervisor dimension warehouse Dr. Caden Bass. At baseline patient normally has 3-4 bowel movements a day. Patient also has unknown under lying hypoglycemia. Patient was in the [place] when she stood up she felt dizzy lightheaded. Sat down again. Got up again. Her felt funny again. Denied any chest pain or palpitation. For last 4 to 5 days patient been having 5-6 bowel movements a day. Some decrease in appetite. Then subsequent about 2 dizzy episodes in the chest patient passed out. Denies any significant abdominal pain. No fever no chills. Patient is being treated for ulcerative colitis flareup with IV Solu-Medrol. June 22: Did tolerate clear liquid diet. Denies any abdominal pain. No na usea vomiting. Advance to full liquid. Orthostatic was checked today. Negative. Cut back IV fluids. Increase activity. June 23: Patient bowels are well-controlled no abdominal pain. Will not give any steroid taper. Patient syncope discharge was felt to be vasovagal from probably dehydration. Patient will follow-up with Dr. Caden Bass. Diet discussed. Telemetry done overnight was unremarkable. Discussed with nurse Discussion and discharge planning more than 35 minutes Physical examination: VITAL SIGNS: 97.8, 67, 16, 106 x 57, 97% room air GENERAL: Comfortable EYES: Pupils equal. Conjunctiva alan l. HEENT: External appearance of nose and ears normal, oral cavity grossly normal. NECK: JVD not raised; masses not palpable. HEART: First and second heart sounds are normal; no edema. LUNGS: Respiratory rate normal; clear to auscultation. ABDOMEN: Soft, nontender, liver spleen not palpable, no masses palpable. PSYCH: Alert and oriented x3; mood and affect alan l. MUSCULOSKELETAL:No Clubbing/cyanosis;muscles-grossly intact INVESTIGATIONS, reviewed in the clinical context: June 22: White count 6.0 hemoglobin 11 platelets 460 sodium 143 potassium 4.2 BUN 7.[address] abdomen pelvis with contrast: Circumferential wall prominence of the colon most pronounced in the sigmoid colon and rectum with hyperemia of the mucosa Assessment plan: -Acute ulcerative colitis exacerbation. Patient had symptoms for a year and a half with diagnosis and February 2024. Execute exacerbation last 5 days. With about 5-6 bowel movements a day. Decreased appetite. GI services not available in the hospital. Currently tolerating clear liquid diet. 6 soft bland diet. Received IV Solu-Medrol l. No taper. -Syncope likely vasovagal given that patient had decreased oral intake increased diarrhea for last 4 to 5 days.: Vasovagal Telemetry unremarkable -Normocytic anemia likely of chronic disease from ulcerative colitis -Hyperlipidemia Lipitor 10 mg nightly -Essential hypertension Lopressor 25 mg twice daily -Full code Disposition: Home Plan - Discharge Summary Discharge Rx Participant: No New Discharge Prescriptions: Continue Multivitamins, Thera [Multivitamin (formulary)] 1 tab PO DAILY Ascorbic Acid [Vitamin C] 500 mg PO DAILY Atorvastatin [Lipitor] 10 mg PO HS Balsalazide Disodium 2,250 mg PO TID Niacin 500 mg PO DAILY Metoprolol Tartrate [Lopressor] 25 mg PO BID Calcium Carbonate/Vitamin D3 [Calcium 600 mg-Vit D3 10 mcg (400 Unit)] 1 tab PO DAILY Aspirin EC [Ecotrin Low Dose] 81 mg PO DAILY Discharge Medication List Ascorbic Acid [Vitamin C] 500 mg PO DAILY 06/05/21 [History] Calcium Carbonate/Vitamin D3 [Calcium 600 mg-Vit D3 10 mcg (400 Unit)] 1 tab PO DAILY 06/05/21 [History] Metoprolol Tartrate [Lopressor] 25 mg PO BID 06/05/21 [History] Multivitamins, Thera [Multivitamin (formulary)] 1 tab PO DAILY 06/05/21 [History] Niacin 500 mg PO DAILY 06/05/21 [History] Aspirin EC [Ecotrin Low Dose] 81 mg PO DAILY 02/22/24 [History] Atorvastatin [Lipitor] 10 mg PO HS 02/22/24 [History] Balsalazide Disodium 2,250 mg PO TID 06/21/24 [History] Follow up Appointment(s)/Referral(s): Elgin Garber MD [Primary Care Provider] - 1-2 days (The office was not available please call and make follow up appointment.) Darya Bass MD [STAFF PHYSICIAN] - 2 Weeks (Left voicemail for office to call you if you do not hear back please call back on 06/23/24.) Patient Instructions/Handouts: Ulcerative Colitis (DC) Discharge Disposition: HOME SELF-CARE
== END 2024-06-23 12:39 | disposition home or self-care (01) | DRG 387 ==
LOC: EC 11:37 → 5NMEDONC 14:57
PROVIDERS: ADMIT Hospitalist; ATTEND Hospitalist
DX: K51.911 Ulcerative colitis, unspecified with rectal bleeding (principal); D63.8 Anemia in other chronic diseases classified elsewhere; I10 Essential (primary) hypertension; I25.10 Atherosclerotic heart disease of native coronary artery without angina pectoris; E78.5 Hyperlipidemia, unspecified; E86.0 Dehydration; E16.2 Hypoglycemia, unspecified; R55 Syncope and collapse; I87.8 Other specified disorders of veins; I49.3 Ventricular premature depolarization; Z79.82 Long term (current) use of aspirin; I25.2 Old myocardial infarction; Z95.5 Presence of coronary angioplasty implant and graft; Z79.899 Other long term (current) drug therapy
CPT/HCPCS: 36415; 74018; 74177; 80048; 80053; 82272; 83036; 83735; 84484; 85025; 85610; 85730; 96361; 96374; 96375; 99285